=== PATIENT | female | born 1960 | race Caucasian/White ===

== ENCOUNTER 2017-06-28 11:53 | Emergency (ER) | payer BC ==
[2017-06-28] MEDS ORDERED: KETOROLAC 60 MG/2 ML VIAL IM STA (12:14)
--- NOTE | 2017-06-28 12:22 | ED ---
General Adult HPI - General Chief complaint: Back Pain/Injury Stated complaint: blood in urine, back pain Time Seen by Provider: 06/28/17 12:06 Source: patient Mode of arrival: wheelchair Limitations: no limitations - History of Present Illness Initial comments: This 57-year-old white female presents with a complaint of some low back pain. This started yesterday. She states it is into her bilateral lumbar spine. She also has chronic back pain and this apparently is due to a degenerative disc. She denies any recent injuries. She also relates having some hematuria, frequency, and urgency and thinks she may have a urinary tract infection. She further relates having a cough and was diagnosed with bronchitis 2 weeks ago. She initially was prescribed some prednisone and amoxicillin but this does not seem to have helped alleviate her symptoms. She had a fever of 103 2 weeks ago but none recently. No other complaints or modifying factors. She will take an occasional NSAID for her back pain but denies any other medications in this regard. - Related Data Home Medications Medication Instructions Recorded Confirmed Ca/D3/Mag/Zinc/Jamil/Angel/Mgbor 1 tab PO DAILY 01/27/15 06/28/17 [Caltrate 600+D3+Min Chew Tab] Montelukast [Singulair] 10 mg PO HS 01/27/15 06/28/17 Multivitamin/Iron/Folic Acid 1 tab PO DAILY 01/27/15 06/28/17 [Centrum Complete Multivit Tab] Linaclotide [Linzess] 145 mcg PO DAILY 01/30/15 06/28/17 Albuterol Sulfate [Proair Hfa] 2 puff INHALATION RT-Q6H PRN 06/28/17 06/28/17 Beclomethasone Dipropionate [Qvar] 2 puff INHALATION RT-BID 06/28/17 06/28/17 Cranberry Fruit Concentrate [Azo 250 mg PO DAILY PRN 06/28/17 06/28/17 Cranberry] Levothyroxine Sodium [Synthroid] 137 mcg PO DAILY 06/28/17 06/28/17 Omeprazole 20 mg PO DAILY 06/28/17 06/28/17 Previous Rx's Medication Instructions Recorded Ciprofloxacin HCl [Cipro] 500 mg PO Q12HR #20 tablet 06/28/17 traMADol HCl [Ultram] 50 - 100 mg PO Q6H PRN #20 tab 06/28/17 Allergies Allergy/AdvReac Type Severity Reaction Status Date / Time acetaminophen [From Vicodin] Allergy Unknown Verified 06/28/17 12:35 hydrocodone [From Vicodin] Allergy Unknown Verified 06/28/17 12:35 morphine Allergy Nausea & Verified 06/28/17 12:35 Vomiting,rash,swelling Review of Systems ROS Statement: Those systems with pertinent positive or pertinent negative responses have been documented in the HPI. ROS Other: All systems not noted in ROS Statement are negative. Past Medical History Past Medical History: Cancer Additional Past Medical History / Comment(s): thyroid cancer History of Any Multi-Drug Resistant Organisms: None Reported Past Surgical History: Appendectomy, Cholecystectomy, Hysterectomy Additional Past Surgical History / Comment(s): tumor removed from right lung, thyroidectomy Past Psychological History: No Psychological Hx Reported Smoking Status: Former smoker Past Alcohol Use History: None Reported Past Drug Use History: None Reported General Exam - General Exam Comments Initial Comments: GENERAL: The patient is well nourished and well hydrated. VITAL SIGNS: Heart rate, blood pressure, respiratory rate reviewed as recorded in nurse's notes. EYES: Pupils are round and reactive. Extraocular movements are intact. No conjunctival / lid redness or swelling. ENT: No external evidence of injury, swelling, or ecchymosis. Airway is patent. Throat is clear. NECK: Nontender. No swelling or evidence of injury. No subcutaneous emphysema. Trachea is midline. No thyroid mass. HEART: Regular rate and rhythm. Good peripheral pulses. LUNGS/CHEST: Breath sounds clear and equal bilaterally. No rales, rhonchi, or wheezes. No ecchymosis, subcutaneous emphysema, or tenderness. ABDOMEN: Abdomen soft without tenderness. No palpable masses or organomegaly. No peritoneal signs. No abdominal wall swelling or ecchymosis. EXTREMITIES: No extremity tenderness. Normal muscle tone and function. There is tenderness present to the bilateral para lumbar musculature and also in the midline. NEUROLOGIC: Sensation is grossly intact. Cranial nerve exam reveals face is symmetrical, tongue is midline, speech is clear. SKIN: No abrasions or ecchymosis is noted. No induration or masses noted. PSYCHIATRIC: Alert and oriented. Appropriate behavior and judgment. Limitations: no limitations Course Vital Signs 06/28/17 06/28/17 11:56 13:15 Temperature 98.1 F Pulse Rate 86 74 Respiratory 20 18 Rate Blood Pressure 135/73 115/72 O2 Sat by Pulse 98 97 Oximetry Medical Decision Making - Medical Decision Making The patient was seen and examined. All diagnostics were reviewed. He received Toradol 60 mg IM for pain control. She does relate some mild relief but is still having pain and is ordered some Ultram. She apparently has had Ultram before without any problems. Her urine does show evidence of urinary tract infection. The white blood cell count is slightly elevated and on the labs. The chest x-ray does show some chronic changes in the right base which patient was aware of. This may be atelectasis versus an infiltrate per radiology. They note that it is chronic in nature. Overall, it is felt that she potentially could have a degree of pyelonephritis. The possibility of her back pain being related to chronic back pain exacerbation is certainly possible as well. Nevertheless, is felt as though she is stable for discharge and leaves in no severe distress. - Lab Data Result diagrams: 06/28/17 12:25 06/28/17 12:25 Lab Results 06/28/17 06/28/17 06/28/17 Range/Units 12:20 12:25 12:25 WBC 12.4 H (3.8-10.6) k/uL RBC 5.03 (3.80-5.40) m/uL Hgb 15.5 (11.4-16.0) gm/dL Hct 44.3 (34.0-46.0) % MCV 87.9 (80.0-100.0) fL MCH 30.7 (25.0-35.0) pg MCHC 34.9 (31.0-37.0) g/dL RDW 12.9 (11.5-15.5) % Plt Count 323 (150-450) k/uL Neutrophils % 76 % Lymphocytes % 16 % Monocytes % 5 % Eosinophils % 1 % Basophils % 0 % Neutrophils # 9.5 H (1.3-7.7) k/uL Lymphocytes # 2.0 (1.0-4.8) k/uL Monocytes # 0.6 (0-1.0) k/uL Eosinophils # 0.2 (0-0.7) k/uL Basophils # 0.1 (0-0.2) k/uL Sodium 141 (137-145) mmol/L Potassium 4.3 (3.5-5.1) mmol/L Chloride 107 (98-107) mmol/L Carbon Dioxide 24 (22-30) mmol/L Anion Gap 10 mmol/L BUN 13 (7-17) mg/dL Creatinine 0.60 (0.52-1.04) mg/dL Est GFR (MDRD) Af Amer >60 (>60 ml/min/1.73 sqM) Est GFR (MDRD) Non-Af >60 (>60 ml/min/1.73 sqM) Glucose 78 (74-99) mg/dL Calcium 9.1 (8.4-10.2) mg/dL Urine Color Yellow Urine Appearance Clear (Clear) Urine pH 5.5 (5.0-8.0) Ur Specific [place] 1.008 (1.001-1.035) Urine Protein Negative (Negative) Urine Glucose (UA) Negative (Negative) Urine Ketones Negative (Negative) Urine Blood Negative (Negative) Urine Nitrite Negative (Negative) Urine Bilirubin Negative (Negative) Urine Urobilinogen <2.0 (<2.0) mg/dL Ur Leukocyte Esterase Trace H (Negative) Urine RBC 1 (0-5) /hpf Urine WBC 14 H (0-5) /hpf Disposition Clinical Impression: Lumbar back pain, Pyelonephritis, UTI (urinary tract infection), Leukocytosis Disposition: HOME SELF-CARE Condition: Good Instructions: Chronic Back Pain (ED), Kidney Infection (ED), Urinary Tract Infection in Women (ED) Prescriptions: Ciprofloxacin HCl [Cipro] 500 mg PO Q12HR #20 tablet traMADol HCl [Ultram] 50 - 100 mg PO Q6H PRN #20 tab PRN Reason: Pain Referrals: Rik Kiser MD [Primary Care Provider] - 1-2 days Time of Disposition: 13:27
[2017-06-28 12:38] LABS: Basophils # (A) 0.1 k/uL (0-0.2); Basophils % (A) 0 %; CH 30.1; CHCM 34.4; Eosinophils # (A) 0.2 k/uL (0-0.7); Eosinophils % (A) 1 %; HCT 44.3 % (34.0-46.0); HDW 2.52; HGB 15.5 gm/dL (11.4-16.0); Luc # (Auto) 0.13; Luc % (Auto) 1; Lymphocytes % (A) 16 %; MCH 30.7 pg (25.0-35.0); MCHC 34.9 g/dL (31.0-37.0); MCV 87.9 fL (80.0-100.0); Mean Platelet Volume 6.6; Monocytes # (A) 0.6 k/uL (0-1.0); Monocytes % (A) 5 %; Neutrophils # (A) 9.5 k/uL (1.3-7.7); Neutrophils % (A) 76 %; RBC 5.03 m/uL (3.80-5.40); RDW 12.9 % (11.5-15.5); WBC 12.4 k/uL (3.8-10.6); WBC (Perox) 12.09
[2017-06-28 12:40] LABS: Appearance,Urine Clear (Clear); Bilirubin,Urine Negative (Negative); Glucose,Urine (UA) Negative (Negative); Ketones,Urine Negative (Negative); Leukocyte Esterase,Urine Trace (Negative); Nitrite,Urine Negative (Negative); PH, Urine 5.5 (5.0-8.0); Particle Count 786; Protein,Urine Negative (Negative); RBC,Urine 1 /hpf (0-5); Specific Gravity,Urine 1.008 (1.001-1.035); UA Billing (MACRO vs. MICRO) MICRO; Urobilinogen,Urine <2.0 mg/dL (<2.0); WBC,Urine 14 /hpf (0-5)
[2017-06-28 12:48] LABS: Anion Gap 10 mmol/L; Blood Urea Nitrogen 13 mg/dL (7-17); Calcium 9.1 mg/dL (8.4-10.2); Carbon Dioxide 24 mmol/L (22-30); Chloride 107 mmol/L (98-107); Glucose 78 mg/dL (74-99); Non-African American GFR(MDRD) >60 (>60 ml/min/1.73 sqM); Potassium 4.3 mmol/L (3.5-5.1); Sodium 141 mmol/L (137-145)
--- NOTE | 2017-06-28 12:51 | XR ---
EXAMINATION TYPE: XR chest 2V DATE OF EXAM: 06/28/2017 COMPARISON: 03/28/2012 TECHNIQUE: PA and lateral views submitted. HISTORY: Cough and congestion FINDINGS: Subsegmental consolidation the right lung base was also noted on the previous. Heart size stable. Ath erosclerotic change aorta. No pneumothorax. No interstitial edema. IMPRESSION: 1. Stable chronic appearing right lower lobe infiltrate or atelectasis.
[2017-06-28 13:21] VITALS: RESP 18
[2017-06-28] MEDS ORDERED: traMADol 50 MG TAB PO STA (13:24)
[2017-06-28 13:51] VITALS: BP 116/72; PULSE 67; TEMP 97.6
== END 2017-06-28 13:51 | disposition home or self-care (01) ==
LOC: EC 11:53
DX: N12 Tubulo-interstitial nephritis, not specified as acute or chronic (principal); N39.0 Urinary tract infection, site not specified; D72.829 Elevated white blood cell count, unspecified; M47.816 Spondylosis without myelopathy or radiculopathy, lumbar region; R91.8 Other nonspecific abnormal finding of lung field; Z87.891 Personal history of nicotine dependence; E89.0 Postprocedural hypothyroidism; Z79.51 Long term (current) use of inhaled steroids; Z79.899 Other long term (current) drug therapy; Z88.5 Allergy status to narcotic agent; Z85.850 Personal history of malignant neoplasm of thyroid
CPT/HCPCS: 36415; 80048; 85025; 81001; 71020; 99283; 96372; J1885

== ENCOUNTER → 2019-02-15 | Outpatient (CLI) | payer BC ==
--- NOTE | 2019-02-15 18:47 | MR ---
EXAMINATION TYPE: MR angio head wo con DATE OF EXAM: 02/15/2019 COMPARISON: Correlation MRI brain 03/28/2012 HISTORY: 58-year-old female Cerebral aneurysm, nonruptured, AMATO TECHNIQUE: High-resolution 3-D [id number] imaging of the [place] without contrast. Rotat ional 3-D reconstructions generated on a dedicated independent workstation. FINDINGS: Both anterior and posterior circulations are patent. Vessels show normal caliber and contour. No sign ificant stenosis, arterial occlusion, or aneurysmal change. IMPRESSION: Unremarkable MRA [place].
== END | disposition home or self-care (01) ==
LOC: RADMRIMAIN 10:58
PROVIDERS: ATTEND Psychiatry & Neurology Neurology
DX: I67.1 Cerebral aneurysm, nonruptured (principal)
CPT/HCPCS: 70544

== ENCOUNTER → 2020-03-12 | Outpatient (CLI) | payer BC ==
--- NOTE | 2020-03-12 12:03 | FL ---
EXAMINATION TYPE: FL barium swallow DATE OF EXAM: 03/12/2020 CLINICAL HISTORY: Dysphagia and reflux for years. Surgical history of thyroidectomy. TECHNIQUE: A double contrast esophagram is performed utilizing air and barium. A total of 1 minute and 28 seconds of fluoroscopic time was utilized during procedure. 51 fluoroscopic images were saved during the examination. COMPARISON: None FINDINGS: There is a very mild smooth narrowing of the distal gastroesophageal junction resulting in intermittent delayed propulsion through the distal esophagus into the stomach. A very small hiatal he rnia seen on supine imaging. Mild degree gastroesophageal reflux is noted in the supine position only . The patient swallows contrast without difficulty. IMPRESSION: 1. Very mild smooth stricture of the distal esophagus at the gastroesophageal junction resulting in d elayed passage of contrast through the distal esophagus intermittently. 2. Mild degree gastroesophageal reflux with a very small hiatal hernia.
== END | disposition home or self-care (01) ==
LOC: RADUSWWP 11:05
PROVIDERS: ATTEND Surgery Plastic and Reconstructive Surgery
DX: K22.2 Esophageal obstruction (principal); K22.8 Other specified diseases of esophagus; K21.9 Gastro-esophageal reflux disease without esophagitis; K44.9 Diaphragmatic hernia without obstruction or gangrene
CPT/HCPCS: 74220

== ENCOUNTER → 2020-03-25 | Outpatient (CLI) | payer BC | END | disposition home or self-care (01) | LOC: LABWHC1 11:47 | PROVIDERS: ATTEND Surgery Plastic and Reconstructive Surgery | DX: Z11.59 Encounter for screening for other viral diseases (principal) ==

== ENCOUNTER → 2020-03-27 | Day surgery (SDC) | payer BC ==
[2020-03-25 16:10] VITALS: BMI 25.6
--- NOTE | 2020-03-26 19:48 | P.GSHP ---
History of Present Illness H&P Date: 03/27/20 CHIEF COMPLAINT: GERD HISTORY OF PRESENT ILLNESS: The patient is a 60-year-old female who presents reports gastroesophageal reflux disease. Upper endoscopy was offered for further evaluation and management. PAST MEDICAL HISTORY: Please see list. PAST SURGICAL HISTORY: Please see list. MEDICATIONS: Please see list. ALLERGIES: Please see list. SOCIAL HISTORY: No illicit drug use FAMILY HISTORY: No reports of Crohn disease or ulcerative colitis. REVIEW OF ORGAN SYSTEMS: CONSTITUTIONAL: No reports of fevers or chills. GI: Denies any blood in stools or constipation. PHYSICAL EXAM: VITAL SIGNS: Stable GENERAL: Well-developed and pleasant in no acute distress. HEENT: No scleral icterus. Extraocular movements grossly intact. Moist buccal mucosa. NECK: Supple without lymphadenopathy. CHEST: Unlabored respirations. Equal bilateral excursions. CARDIOVASCULAR: Regular rate and rhythm. Distal 2+ pulses. ABDOMEN: Soft, nondistended. MUSCULOSKELETAL: No clubbing, cyanosis, or edema. ASSESSMENT: 1. Gastroesophageal reflux disease PLAN: 1. Recommend proceeding with an upper endoscopy Past Medical History Past Medical History: Cancer, CVA/TIA, Fibromyalgia, GERD/Reflux, Hypertension, Skin Disorder, Thyroid Disorder Additional Past Medical History / Comment(s): thyroid cancer, hx migraines, hx seizures-last seizure 2017, TIA 2017, "minimal brain aneurysm", hx heart murmer, hx irregular heartbeat, ulcers, psoriasis on legs, "told high risk for blood clots", dx with lupus yrs ago, History of Any Multi-Drug Resistant Organisms: None Reported Past Surgical History: Appendectomy, Cholecystectomy, Hysterectomy Additional Past Surgical History / Comment(s): tumor removed from right lung, thyroidectomy Past Anesthesia/Blood Transfusion Reactions: Motion Sickness Smoking Status: Former smoker - Past Family History Mother Family Medical History: No Reported History Medications and Allergies Home Medications Medication Instructions Recorded Confirmed Type Ca/D3/Mag/Zinc/Jamil/Angel/Mgbor 1 tab PO DAILY 01/27/15 03/25/20 History [Caltrate 600+D3+Min Chew Tab] Montelukast [Singulair] 10 mg PO HS 01/27/15 03/25/20 History Multivitamin/Iron/Folic Acid 1 tab PO DAILY 01/27/15 03/25/20 History [Centrum Complete Multivit Tab] Albuterol Sulfate [Proair Hfa] 2 puff INHALATION RT-Q6H PRN 06/28/17 03/25/20 History Beclomethasone Dipropionate [Qvar] 2 puff INHALATION RT-BID 06/28/17 03/25/20 History Levothyroxine Sodium [Synthroid] 150 mcg PO DAILY 03/25/20 03/25/20 History Linaclotide [Linzess] 145 mcg PO HS PRN 03/25/20 03/25/20 History Allergies Allergy/AdvReac Type Severity Reaction Status Date / Time acetaminophen [From Vicodin] Allergy Unknown Verified 03/25/20 15:55 hydrocodone [From Vicodin] Allergy Unknown Verified 03/25/20 16:22 morphine Allergy Nausea & Verified 03/25/20 15:55 Vomiting,rash,swelling
[~2020-03-27] MED LIST: LACTATED RINGERS 1,000 ML IV SCH; LIDOCAINE 1% INJ 10MG/ML (20 ML MDV) ONE; PROPOFOL 10 MG/ML 20 ML VIAL IV ONE
[2020-03-27 10:11] VITALS: TEMP 97.1
--- NOTE | 2020-03-27 10:58 | P.HPADDEND ---
H&P Addendum H&P Addendum Date: 03/27/20 Patient presents with history of dysphagia. Esophagram confirms small sliding hiatal hernia stricture along the distal esophagus. Will proceed with upper endoscopy.
--- NOTE | 2020-03-27 11:02 | P.PCN ---
Date of Procedure: 03/27/20 Description of Procedure: PREOPERATIVE DIAGNOSIS: Dysphagia. Gastroesophageal reflux disease Esophageal stricture POSTOPERATIVE DIAGNOSIS: Dysphagia. Gastroesophageal reflux disease Esophageal stricture Gastritis OPERATION: Esophagogastroduodenoscopy with rigid dilator over the guidewire 51 Fr. Esophagogastroduodenoscopy with cold forceps biopsies along antrum SURGEON: Darlene Vick MD ANESTHESIA: MAC. INDICATIONS: The patient is a 60-year-old female who presents with a history of dysphagia. B enefits and risks of the procedure were described. Informed consent was obtained. DESCRIPTION: The patient was brought into the endoscopy suite and laid in the left lateral decubitus position. After a timeout was confirmed, the procedure was initiated. An Olympus gastroscope was passed and the stomach was entered. Mild gastritis was identified. The scope was advanced to the duodenum which was unremarkable. Retroflexion the scope confirmed a Hill grade 1 lower esophageal valve. Additionally, stricture identified along the upper esophageal sphincter. Next using an Swedish rigid dilator, a guidewire was placed through the Olympus gastroscope. Next the scope was withdrawn. A 51-Frisian rigid Swedish dilator was passed carefully along the posterior oropharynx to 50 cm and left in place for 2-3 minutes stretch. The dilator was withdrawn including the guidewire. The scope was reentered along the posterior oropharynx with no findings of full- thickness tear of the upper esophageal sphincter. Next, inflammation of the antrum was identified with cold forceps biopsies obtained. No full-thickness injury was encountered. The GI tract was desufflated. The patient tolerated the procedure well. FINDINGS: Squamocolumnar junction unremarkable at 35 cm. Distal esophageal stricture without ulceration Upper esophageal sphincter stricture Swedish rigid dilator 51-Frisian completed. No large hiatus hernia Mild gastritis. Hill grade 1 lower esophageal valve. LA grade A esophagitis. RECOMMENDATIONS: Upper endoscopy as needed Recommend esophageal manometry to elucidate esophageal spasm Plan - Discharge Summary New Discharge Prescriptions: Continue Montelukast [Singulair] 10 mg PO HS Multivitamin/Iron/Folic Acid [Centrum Complete Multivit Tab] 1 tab PO DAILY Ca/D3/Mag/Zinc/Jamil/Angel/Mgbor [Caltrate 600-D3-Min Chew Tab] 1 tab PO DAILY Beclomethasone Dipropionate [Qvar 80 mcg] 2 puff INHALATION RT-BID Albuterol Sulfate [Proair Hfa] 2 puff INHALATION RT-Q6H PRN PRN Reason: Shortness Of Breath Levothyroxine Sodium [Synthroid] 150 mcg PO DAILY Linaclotide [Linzess] 145 mcg PO HS PRN PRN Reason: Constipation Discharge Medication List Ca/D3/Mag/Zinc/Jamil/Angel/Mgbor [Caltrate 600-D3-Min Chew Tab] 1 tab PO DAILY 01/27/15 [History] Montelukast [Singulair] 10 mg PO HS 01/27/15 [History] Multivitamin/Iron/Folic Acid [Centrum Complete Multivit Tab] 1 tab PO DAILY 01/27/15 [History] Albuterol Sulfate [Proair Hfa] 2 puff INHALATION RT-Q6H PRN 06/28/17 [History] Beclomethasone Dipropionate [Qvar 80 mcg] 2 puff INHALATION RT-BID 06/28/17 [History] Levothyroxine Sodium [Synthroid] 150 mcg PO DAILY 03/25/20 [History] Linaclotide [Linzess] 145 mcg PO HS PRN 03/25/20 [History] Follow up Appointment(s)/Referral(s): Darlene Vick MD [STAFF PHYSICIAN] - 04/15/20 Patient Instructions/Handouts: Esophageal Dilation (DC), Esophageal Spasm (GEN) Activity/Diet/Wound Care/Special Instructions: Recommend warm beverages prior to meals. Avoid extremely cold food. Diet as tolerated today Discharge Disposition: HOME SELF-CARE
[2020-03-27 11:10] VITALS: RESP 17
[2020-03-27 11:15] VITALS: BP 140/70; PULSE 72
== END | disposition home or self-care (01) ==
LOC: ORWHC2ENDO 09:28
PROVIDERS: ATTEND Surgery Plastic and Reconstructive Surgery
DX: K29.50 Unspecified chronic gastritis without bleeding (principal); K31.89 Other diseases of stomach and duodenum; K22.2 Esophageal obstruction; K21.0 Gastro-esophageal reflux disease with esophagitis; M79.7 Fibromyalgia; I10 Essential (primary) hypertension; M32.9 Systemic lupus erythematosus, unspecified; L40.9 Psoriasis, unspecified; I67.1 Cerebral aneurysm, nonruptured; E89.0 Postprocedural hypothyroidism; F41.9 Anxiety disorder, unspecified; F32.9 Major depressive disorder, single episode, unspecified; Z88.5 Allergy status to narcotic agent; Z85.850 Personal history of malignant neoplasm of thyroid; Z86.73 Personal history of transient ischemic attack (TIA), and cerebral infarction without residual deficits; Z86.69 Personal history of other diseases of the nervous system and sense organs; Z86.79 Personal history of other diseases of the circulatory system; Z87.898 Personal history of other specified conditions; Z90.49 Acquired absence of other specified parts of digestive tract; Z90.710 Acquired absence of both cervix and uterus; Z98.890 Other specified postprocedural states; Z87.891 Personal history of nicotine dependence; Z79.899 Other long term (current) drug therapy; Z79.51 Long term (current) use of inhaled steroids; Z79.890 Hormone replacement therapy
CPT/HCPCS: 43248; 43239; 88305; J2001; J2704; 43249

== ENCOUNTER → 2020-04-30 | Outpatient (CLI) | payer BC ==
[2020-04-30 15:36] LABS: ALT 24 U/L (4-34); AST 26 U/L (14-36); African American GFR (CKD) >90 (>60 ml/min/1.73 sqM); Albumin 4.3 g/dL (3.5-5.0); Alkaline Phosphatase 79 U/L (38-126); Anion Gap 7 mmol/L; Blood Urea Nitrogen 16 mg/dL (7-17); Calcium 9.2 mg/dL (8.4-10.2); Carbon Dioxide 27 mmol/L (22-30); Chloride 105 mmol/L (98-107); Glucose 95 mg/dL (74-99); Non-African American GFR(CKD) >90 (>60 ml/min/1.73 sqM); Potassium 4.2 mmol/L (3.5-5.1); Sodium 139 mmol/L (137-145); Total Bilirubin 0.3 mg/dL (0.2-1.3); Total Protein 7.3 g/dL (6.3-8.2)
[2020-04-30 15:38] LABS: HCT 44.3 % (34.0-46.0); HGB 14.4 gm/dL (11.4-16.0); MCH 29.5 pg (25.0-35.0); MCHC 32.6 g/dL (31.0-37.0); MCV 90.5 fL (80.0-100.0); Mean Platelet Volume 8.3; Platelet Count 300 k/uL (150-450); RDW 12.8 % (11.5-15.5); WBC 6.2 k/uL (3.8-10.6)
== END | disposition home or self-care (01) ==
LOC: LABWHC1 13:18
PROVIDERS: ATTEND Surgery Plastic and Reconstructive Surgery
DX: Z01.810 Encounter for preprocedural cardiovascular examination (principal)
CPT/HCPCS: 36415; 80053; 85027; 93005

== ENCOUNTER 2020-07-11 13:49 | Observation (INO) | payer BC ==
--- NOTE | 2020-07-10 21:03 | P.GSHP ---
History of Present Illness H&P Date: 07/11/20 CHIEF COMPLAINT: Paraesophageal hiatal hernia with gastroesophageal reflux disease. HISTORY OF PRESENT ILLNESS: The patient is a 60-year-old female who presents with paraesophageal hiatal hernia. She has completed an esophageal manometry including upper endoscopy workup. Now she presents for surgical intervention. PAST MEDICAL HISTORY: Please see list. PAST SURGICAL HISTORY: Please see list. MEDICATIONS: Please see list. ALLERGIES: Please see list. SOCIAL HISTORY: No illicit drug use FAMILY HISTORY: No reports of Crohn disease or ulcerative colitis. REVIEW OF ORGAN SYSTEMS: CONSTITUTIONAL: No reports of fevers or chills. GI: Denies any blood in stools or constipation. PHYSICAL EXAM: VITAL SIGNS: Stable GENERAL: Well-developed pleasant and in no acute distress. HEENT: No scleral icterus. Extraocular movements grossly intact. Moist buccal mucosa. NECK: Supple without lymphadenopathy. CHEST: Unlabored respirations. Equal bilateral excursions. CARDIOVASCULAR: Regular rate and rhythm. Distal 2+ pulses. ABDOMEN: Soft, nondistended. No peritoneal signs. MUSCULOSKELETAL: No clubbing, cyanosis, or edema. SKIN: Well-perfused. Good skin turgor. MANOMETRY: Shows no evidence of achalasia or scleroderma. ASSESSMENT: 1. Diaphragmatic paraesophageal hiatal hernia with severe gastroesophageal reflux disease. PLAN: 1. Recommend proceeding with a robotic paraesophageal hiatal hernia with possible mesh. 2. Benefits and risks of surgical intervention was discussed including possibility of open technique. 3. Inpatient hospitalization recommended of 2 nights 4. DVT prophylaxis. 5. Antibiotic prophylaxis. 6. She has also completed a very low caloric high-protein diet to address underlying hepatomegaly. Past Medical History Past Medical History: Asthma, Cancer, CVA/TIA, Osteoarthritis (OA), Seizure Disorder, Thyroid Disorder Additional Past Medical History / Comment(s): thyroid cancer, TIA, MIGRAINE HEADACHE , SEIZURE- LAST 2006, PATIENT STATES SHE HAS A BRAIN ANEURYSM DOCTORS A RE WATCHING IT EVERY 6 MONTHS TO A YEAR. History of Any Multi-Drug Resistant Organisms: None Reported Past Surgical History: Appendectomy, Cholecystectomy, Hysterectomy Additional Past Surgical History / Comment(s): tumor removed from right lung, thyroidectomy, BSO Past Anesthesia/Blood Transfusion Reactions: Motion Sickness Smoking Status: Former smoker - Past Family History Mother Family Medical History: No Reported History Medications and Allergies Home Medications Medication Instructions Recorded Confirmed Type Ca/D3/Mag/Zinc/Jamil/Angel/Mgbor 1 tab PO DAILY 01/27/15 07/10/20 History [Caltrate 600-D3-Min Chew Tab] Multivitamin/Iron/Folic Acid 1 tab PO DAILY 01/27/15 07/10/20 History [Centrum Complete Multivit Tab] Albuterol Sulfate [Proair Hfa] 2 puff INHALATION RT-Q6H PRN 06/28/17 07/10/20 History Beclomethasone Dipropionate [Qvar 2 puff INHALATION RT-BID PRN 06/28/17 07/10/20 History 80 mcg] Levothyroxine Sodium [Synthroid] 150 mcg PO DAILY 03/25/20 07/10/20 History Levothyroxine Sodium [Tirosint-Deepika] 25 mcg PO DAILY 07/10/20 07/10/20 History Allergies Allergy/AdvReac Type Severity Reaction Status Date / Time acetaminophen [From Tylenol] Allergy Nausea Verified 07/10/20 11:09 hydrocodone [From Vicodin] Allergy Nausea & Verified 07/10/20 11:09 Vomiting, CONSTIPATION morphine Allergy Nausea & Verified 07/10/20 11:09 Vomiting,rash,swelling
[~2020-07-11 13:49] MED LIST changes: +ACETAMINOPHEN TAB 500 MG TAB PO STA; +CHLORHEXIDINE GLUCONATE 15 ML CUP MUCOUS MEM ONE; +DEXAMETHASONE SOD PHOSPHATE 10 MG/ML 1 ML VIAL IV ONE; +DEXAMETHASONE SOD PHOSPHATE 4 MG/ML 1 ML VIAL IV STA; +GABAPENTIN 300 MG CAP PO ONE; +HEPARIN SODIUM,PORCINE 5,000 UNIT/ML 1 ML VIAL SQ ONE; -LIDOCAINE 1% INJ 10MG/ML (20 ML MDV) ONE; +MIDAZOLAM 2 MG/2 ML VIAL IV PRN; +ONDANSETRON 4 MG/2 ML VIAL IVP ONE; +PANTOPRAZOLE 40 MG/10 ML VIAL IV ONE; -PROPOFOL 10 MG/ML 20 ML VIAL IV ONE; +SCOPOLAMINE 1.5MG/72HR PATCH TRANSDERM SCH; +fentaNYL (PF) 50 MCG/ML 2 ML AMP IV PRN
[2020-07-11] MEDS ORDERED: LIDOCAINE 1% (10MG/ML) FOR IV START INTRADERMA ONE (14:50)
[2020-07-11] MEDS ORDERED: ROCURONIUM BROMIDE 10 MG/ML 5 ML VIAL IV ONE (16:32)
[2020-07-11] MEDS ORDERED: fentaNYL (PF) 50 MCG/ML 2 ML AMP ONE (16:32)
[2020-07-11] MEDS ORDERED: NEOSTIGMINE 1 MG/ML 10 ML VIAL ONE (16:32)
[2020-07-11] MEDS ORDERED: LIDOCAINE 1% INJ 10MG/ML (20 ML MDV) ONE (16:32)
[2020-07-11] MEDS ORDERED: MIDAZOLAM 2 MG/2 ML VIAL ONE (16:32)
[2020-07-11] MEDS ORDERED: KETOROLAC 15 MG/ML 1 ML VIAL ONE (16:32)
[2020-07-11] MEDS ORDERED: KETAMINE 10 MG/ML 20 ML VIAL ONE (16:32)
[2020-07-11] MEDS ORDERED: SUCCINYLCHOLINE CHLORIDE 100 MG/5 ML SYR IV ONE (16:32)
[2020-07-11] MEDS ORDERED: GLYCOPYRROLATE 0.2 MG/ML 2 ML VIAL ONE (16:32)
[2020-07-11] MEDS ORDERED: PROPOFOL 10 MG/ML 20 ML VIAL IV ONE (16:32)
[2020-07-11] MEDS ORDERED: LIDOCAINE 1%-EPI 1:100,000 20 ML VIAL SQ ONE ×2 (16:53→16:59)
[2020-07-11] MEDS: HYDROmorphone 1 MG/ML 1 ML SYRINGE IVP ONE ×2 (18:28→18:40)
[2020-07-11] MEDS ORDERED: ALBUTEROL NEBULIZED 2.5 MG/3 ML INHALATION PRN (18:29)
[2020-07-11] MEDS ORDERED: FLUTICASONE 110 MCG INHALER INHALATION PRN (18:29)
[2020-07-11] MEDS ORDERED: NALOXONE 0.4 MG/ML 1 ML VIAL IV PRN (18:39)
[2020-07-11] MEDS ORDERED: diphenhydrAMINE 50 MG/ML 1 ML VIAL IVP PRN (18:39)
--- NOTE | 2020-07-11 18:39 | P.OP ---
Date of Procedure: 07/11/20 Description of Procedure: SURGEON: JEY TSE MD PREOPERATIVE DIAGNOSES: 1. Diaphragmatic hiatal hernia 2. Gastroesophageal reflux disease 3. Upper esophageal stricture 4. History of lower esophageal stricture 5. Chronic obstructive pulmonary disease 6. History of thyroid cancer 7. Migraines 8. Brain aneurysm 9. History of seizure disorder 10. Anxiety 11. Depressive disorder POSTOPERATIVE DIAGNOSES: 1. Midline paraesophageal diaphragmatic hiatal hernia, 2 cm 2. Gastroesophageal reflux disease 3. Upper esophageal stricture 4. History of lower esophageal stricture 5. Chronic obstructive pulmonary disease 6. History of thyroid cancer 7. Migraines 8. Brain aneurysm 9. History of seizure disorder 10. Anxiety 11. Depressive disorder OPERATION: 1. Robotic-assisted da Dwayne Xi laparoscopic reduction and repair of incarcerated paraesophageal hiatal hernia 3 x 2 cm without mesh 2. Intraoperative esophagogastroduodenoscopy 3. Placement of 56-Finnish bougie for esophageal strictures ANESTHESIA: General with local anesthetic. ESTIMATED BLOOD LOSS: 5 mL SPECIMENS REMOVED: None COMPLICATIONS: None. FINDINGS: 1. Hiatal defect 3 x 2 cm 2. Hill grade 1 lower esophageal valve after completion of procedure INDICATIONS: The patient is a 60-year-old female who presents with epigastric abdominal pain, gastroesophageal reflux disease poorly controlled despite medications, history of upper including lower esophageal sphincters from reflux and a symptomatic diaphragmatic hiatal hernia. She completed an esophageal manometry confirming hiatal hernia. Given the severity of her symptoms, particularly of her symptomatic diaphragmatic hiatal hernia, she had elected for surgical intervention. Benefits and risks including bleeding, infection, recurrence, dysphagia, injury to the lung, need for further surgery was described at length. Informed consent was obtained. DESCRIPTION: The patient was brought into the operating room and placed in supine position. Preoperatively she had received subcutaneous DVT prophylaxis. After general induction, the abdomen was prepped and draped in standard sterile fashion. The patient had previously voided prior to coming to the operating room. Ioban draping was placed along the abdomen. A timeout protocol was confirmed with the surgical team, for which the patient's name, procedure to be performed including DVT prophylaxis with bilateral SCDs, and preoperative antibiotics were also confirmed. A robotic da Dwayne Xi system was prepped and primed. At 12 cm from the xiphoid to just below the umbilicus, proposed port sites were marked with indelible marker along the left axillary line, left mid-clavicular line with each ports were marked 10 cm from each other. A 5 mm 0 degrees laparoscopic trocar entry was performed along the left upper quadrant. The abdomen was insufflated to 15 mmHg pressure she tolerated well. Diagnostic laparoscopy demonstrated no injury to bowel, viscera, or mesentery. The liver surface was unremarkable. No injury had occurred to the small bowel or viscera. Next, one 8 mm robotic port was placed along the right upper abdomen. An 8-mm port was were placed along the left mid abdomen. The camera 12-mm port extended length was maintained along the epigastrium via the hernia defect. Another 8 mm port was placed along the left upper abdominal wall after exchanging the 5 mm port. Please note that the ports were placed at least 20 cm away from the target anatomy. Care was taken to check that each robotic arm were safely away from collision with the bed or the patient. At the epigastrium, a medium sized Violeta liver retractor was placed under direct visualization with the [employer] Attendant placed under the right shoulder of the patient. The patient was repositioned in reverse Trendelenburg position and 21 after lowering the bed. The robot was docked above the head of the patient. Using a grasper for arm 3, a grasper for arm 2, including hook cautery for arm 1, the robotic system was docked and primed as described. Instruments were inter changed by the team assistant . I had sat at the console. The gastrohepatic ligament was cleaved using a vessel sealer. Next, the phrenoesophageal ligament was mobilized and the distal esophagus was mobilized circumferentially without injury to the bilateral vagi nerves. The left and right crura was identified. A midline hiatal hernia was found. Mobilization of the distal esophagus into the media stinum was performed without injury to the vagus nerves. The measured defect was consistent with at least 3 cm axial length and 2 cm width. After extensive dissection, the distal esophagus of at least 2 cm was brought into the abdominal cavity. Once the hiatus and crura was dissected, 2-0 VLOC nonabsorbable suture was placed initially to reapproximate the diaphragmatic hiatus posteriorly. I went to the head of the bed to perform intraoperative esophagogastroduodenoscopy. An Olympus gastroscope was passed through posterior oropharynx, where the GE junction was found distal to the diaphragm atic hiatus. The intra-abdominal esophageal length obtained during the case was over 2 cm. The stomach was entered including duodenum. Retroflexion of the scope confirmed a Hill grade 1 lower esophageal valve. The squamocolumnar junction was at 35 cm. Diaphragmatic hiatus was at 32 cm. The stomach had been desufflated. No evidence of leaks were found either of the mucosal defects of the esophagus or stomach. To address history of upper including lower esophageal strictures, 56-Finnish bougie was placed for 1 minute and withdrawn. This concluded the endoscopic portion of the case. The robot was undocked from the patient. I re-scrubbed into the case. All instruments and pneumoperitoneum were evacuated from the abdominal cavity. Incisions were reapproximated using 4-0 Monocryl in an interrupted subcuticular fashion. Liquid glue was applied to the skin. Local anesthetic was infiltrated in all wounds for postop analgesia. Multiple intra-abdominal films were obtained. At the end of the procedure, needle, sponge, and instrument count was verified correct by the satellite dish technician. The patient had tolerated the procedure well and was taken to the postanesthesia unit in stable condition. Intraoperative films were reviewed with the patient's family who was pleased with the level of care.
[2020-07-11] MEDS ORDERED: LACTATED RINGERS 1,000 ML IV ONE (18:42)
[2020-07-11 19:22] LABS: Basophils # (A) 0.1 k/uL (0-0.2); Basophils % (A) 1 %; Eosinophils # (A) 0.1 k/uL (0-0.7); Eosinophils % (A) 2 %; HCT 46.9 % (34.0-46.0); HGB 15.6 gm/dL (11.4-16.0); Lymphocytes # (A) 1.8 k/uL (1.0-4.8); Lymphocytes % (A) 29 %; MCH 29.4 pg (25.0-35.0); MCHC 33.2 g/dL (31.0-37.0); MCV 88.5 fL (80.0-100.0); Mean Platelet Volume 8.1; Monocytes # (A) 0.4 k/uL (0-1.0); Monocytes % (A) 6 %; Neutrophils # (A) 3.9 k/uL (1.3-7.7); Neutrophils % (A) 61 %; Platelet Count 294 k/uL (150-450); RDW 12.2 % (11.5-15.5); WBC 6.3 k/uL (3.8-10.6)
[2020-07-11] MEDS: D5-0.45% NACL WITH KCL 20MEQ/L 1,000 ML IV SCH (20:43)
[2020-07-11] MEDS: ALBUTEROL NEBULIZED 2.5 MG/3 ML INHALATION SCH (21:36)
[2020-07-11 22:04] VITALS: RESP 16
[2020-07-11] MEDS: ACETAMINOPHEN IV (For NPO) 650 MG in EMPTY BAG 1 BAG IVPB SCH (22:08)
[2020-07-11] MEDS: HYOSCYAMINE ORAL DROPS 1.875 MG/15 ML BOTTLE PO SCH (23:53)
[2020-07-11] MEDS: METOCLOPRAMIDE 5 MG/ML 2 ML VIAL IVP SCH (23:56)
[2020-07-11] MEDS: SIMETHICONE 40 MG/0.6 ML DROPS 2,000 MG/30 ML BOTTLE PO SCH (23:57)
[2020-07-12] MEDS: KETOROLAC 15 MG/ML 1 ML VIAL IVP SCH ×3 (00:14→13:00)
[2020-07-12] MEDS: ACETAMINOPHEN IV (For NPO) 650 MG in EMPTY BAG 1 BAG IVPB SCH ×2 (03:19→09:41)
[2020-07-12] MEDS: D5-0.45% NACL WITH KCL 20MEQ/L 1,000 ML IV SCH ×2 (03:20→08:36)
[2020-07-12] MEDS: SIMETHICONE 40 MG/0.6 ML DROPS 2,000 MG/30 ML BOTTLE PO SCH ×2 (06:09→13:01)
[2020-07-12] MEDS: HYOSCYAMINE ORAL DROPS 1.875 MG/15 ML BOTTLE PO SCH ×2 (06:11→13:02)
[2020-07-12] MEDS: ONDANSETRON 4 MG/2 ML VIAL IVP SCH ×3 (06:13→12:56)
[2020-07-12] MEDS: METOCLOPRAMIDE 5 MG/ML 2 ML VIAL IVP SCH ×2 (06:13→13:04)
[2020-07-12] MEDS ORDERED: LEVOTHYROXINE 100 MCG TAB PO SCH (06:30)
[2020-07-12] MEDS ORDERED: LEVOTHYROXINE 75 MCG TAB PO SCH (06:30)
[2020-07-12] MEDS: ALBUTEROL NEBULIZED 2.5 MG/3 ML INHALATION SCH ×3 (07:20→11:17)
[2020-07-12 07:25] LABS: Basophils % (A) 0 %; Eosinophils # (A) 0.1 k/uL (0-0.7); Eosinophils % (A) 1 %; HCT 40.9 % (34.0-46.0); HGB 13.3 gm/dL (11.4-16.0); Lymphocytes # (A) 1.2 k/uL (1.0-4.8); Lymphocytes % (A) 12 %; MCH 29.2 pg (25.0-35.0); MCHC 32.6 g/dL (31.0-37.0); MCV 89.4 fL (80.0-100.0); Mean Platelet Volume 7.5; Monocytes # (A) 0.4 k/uL (0-1.0); Monocytes % (A) 4 %; Neutrophils # (A) 8.8 k/uL (1.3-7.7); Neutrophils % (A) 83 %; Platelet Count 222 k/uL (150-450); RBC 4.57 m/uL (3.80-5.40); RDW 12.3 % (11.5-15.5); WBC 10.7 k/uL (3.8-10.6)
[2020-07-12 07:34] LABS: African American GFR (CKD) >90 (>60 ml/min/1.73 sqM); Anion Gap 5 mmol/L; Blood Urea Nitrogen 10 mg/dL (7-17); Calcium 8.4 mg/dL (8.4-10.2); Carbon Dioxide 27 mmol/L (22-30); Chloride 107 mmol/L (98-107); Glucose 173 mg/dL (74-99); Magnesium 2.1 mg/dL (1.6-2.3); Non-African American GFR(CKD) >90 (>60 ml/min/1.73 sqM); Phosphorus 3.7 mg/dL (2.5-4.5); Potassium 4.8 mmol/L (3.5-5.1); Sodium 139 mmol/L (137-145)
--- NOTE | 2020-07-12 07:45 | FL ---
EXAMINATION TYPE: FL esophagus cervic/pharynx DATE OF EXAM: 07/12/2020 LIMITED UGI-ESOPHAGRAM: CLINICAL HISTORY: Reflux status post Jared fundoplication surgery yesterday. TECHNIQUE: Limited esophagram is performed utilizing 25 oz of Isovue-370. A total of 11 seconds of f luoroscopic time was utilized during procedure. 28 spot images saved to PACS. Comparison: Prior esophagram March 12, 2020 FINDINGS: The patient swallowed contrast without difficulty or delay. Esophageal peristalsis and mo tility are within normal limits. There is good flow of contrast along the diaphragmatic hiatus into t he stomach, there is no evidence of contrast extravasation to suggest leak. No hiatal hernia is seen. Patient remains asymptomatic. Surgical clips epigastric region and right upper quadrant, latter like ly from cholecystectomy are incidentally noted. IMPRESSION: No evidence of leak or significant obstruction status post Jared fundoplication surgery yesterday.
[2020-07-12] MEDS ORDERED: LEVOTHYROXINE SODIUM 25 MCG/ML PO SCH (09:00)
[2020-07-12] MEDS ORDERED: ENOXAPARIN 30 MG/0.3 ML SYRINGE SQ SCH (09:00)
[2020-07-12] MEDS ORDERED: PANTOPRAZOLE 40 MG/10 ML VIAL IV SCH (09:00)
[2020-07-12 09:48] VITALS: BMI 24.8
--- NOTE | 2020-07-12 12:30 | P.DS ---
Providers Date of admission: 07/12/20 06:31 Expected date of discharge: 07/12/20 Attending physician: Darlene Vick Primary care physician: Rik Kiser [facility] Course: Doing well. May go home. Julissa diet reinforced. Plan - Discharge Summary Discharge Rx Participant: Yes New Discharge Prescriptions: New Hyoscyamine Oral Drops [Levsin Drops] 0.125 mg PO Q6HR ml Simethicone 40 mg/0.6 ml Drops [Mylicon Drops] 40 mg PO Q6HR ml Scopolamine 1.5MG/72Hr Patch [TransDerm Scop] 1 patch TRANSDERM Q72H patch bisacodyL [Dulcolax] 5 mg PO DAILY PRN #10 tablet. PRN Reason: Constipation Simethicone 40 mg/0.6 ml Drops [Mylicon Drops] 40 mg PO PCHS PRN #30 ml PRN Reason: Gas Ondansetron Odt [Zofran Odt] 4 mg PO Q8HR PRN #9 tab PRN Reason: Nausea Acetaminophen Oral Susp [Tylenol Oral Susp] 500 mg PO Q4-6H PRN #400 ml PRN Reason: Pain Continue Multivitamin/Iron/Folic Acid [Centrum Complete Multivit Tab] 1 tab PO DAILY Ca/D3/Mag/Zinc/Jamil/Angel/Mgbor [Caltrate 600-D3-Min Chew Tab] 1 tab PO DAILY Beclomethasone Dipropionate [Qvar 80 mcg] 2 puff INHALATION RT-BID PRN PRN Reason: Shortness Of Breath Albuterol Sulfate [Proair Hfa] 2 puff INHALATION RT-Q6H PRN PRN Reason: Shortness Of Breath Levothyroxine Sodium [Synthroid] 150 mcg PO DAILY Levothyroxine Sodium [Tirosint-Deepika] 25 mcg PO DAILY Discharge Medication List Ca/D3/Mag/Zinc/Jamil/Angel/Mgbor [Caltrate 600-D3-Min Chew Tab] 1 tab PO DAILY 01/27/15 [History] Multivitamin/Iron/Folic Acid [Centrum Complete Multivit Tab] 1 tab PO DAILY 01/27/15 [History] Albuterol Sulfate [Proair Hfa] 2 puff INHALATION RT-Q6H PRN 06/28/17 [History] Beclomethasone Dipropionate [Qvar 80 mcg] 2 puff INHALATION RT-BID PRN 06/28/17 [History] Levothyroxine Sodium [Synthroid] 150 mcg PO DAILY 03/25/20 [History] Levothyroxine Sodium [Tirosint-Deepika] 25 mcg PO DAILY 07/10/20 [History] Acetaminophen Oral Susp [Tylenol Oral Susp] 500 mg PO Q4-6H PRN #400 ml 07/12/20 [Rx] Hyoscyamine Oral Drops [Levsin Drops] 0.125 mg PO Q6HR ml 07/12/20 [Rx] Ondansetron Odt [Zofran Odt] 4 mg PO Q8HR PRN #9 tab 07/12/20 [Rx] Scopolamine 1.5MG/72Hr Patch [TransDerm Scop] 1 patch TRANSDERM Q72H patch 07/12/20 [Rx] Simethicone 40 mg/0.6 ml Drops [Mylicon Drops] 40 mg PO PCHS PRN #30 ml 07/12/20 [Rx] Simethicone 40 mg/0.6 ml Drops [Mylicon Drops] 40 mg PO Q6HR ml 07/12/20 [Rx] bisacodyL [Dulcolax] 5 mg PO DAILY PRN #10 tablet. 07/12/20 [Rx] Follow up Appointment(s)/Referral(s): Darlene Vick MD [STAFF PHYSICIAN] - 07/17/20 Activity/Diet/Wound Care/Special Instructions: Liquid diet only. No carbonated beverages. No straws. Start Julissa soft diet, July 25 No lifting over 4 pounds in 4 weeks, August 10February shower. No bath tub soaks for 2 weeks until July 25February take [id number] Tylenol for pain. Do not remove scopolamine patch for 3 days, if present Discharge Disposition: HOME SELF-CARE
[2020-07-12 13:29] VITALS: BP 93/52; PULSE 67; TEMP 97.5
== END 2020-07-12 14:10 | disposition home or self-care (01) ==
LOC: OR 13:49 → 6PED 19:13 → OR 07-12 04:00 → 6PED 07-12 06:31
PROVIDERS: ADMIT Surgery Plastic and Reconstructive Surgery; ATTEND Surgery Plastic and Reconstructive Surgery
DX: K44.9 Diaphragmatic hernia without obstruction or gangrene (principal); K21.9 Gastro-esophageal reflux disease without esophagitis; K22.2 Esophageal obstruction; J44.9 Chronic obstructive pulmonary disease, unspecified; I67.1 Cerebral aneurysm, nonruptured; F41.9 Anxiety disorder, unspecified; F32.9 Major depressive disorder, single episode, unspecified; M19.90 Unspecified osteoarthritis, unspecified site; G40.909 Epilepsy, unspecified, not intractable, without status epilepticus; G43.909 Migraine, unspecified, not intractable, without status migrainosus; E89.0 Postprocedural hypothyroidism; R16.0 Hepatomegaly, not elsewhere classified; Z90.49 Acquired absence of other specified parts of digestive tract; Z85.850 Personal history of malignant neoplasm of thyroid; Z86.73 Personal history of transient ischemic attack (TIA), and cerebral infarction without residual deficits; Z87.891 Personal history of nicotine dependence; Z79.899 Other long term (current) drug therapy; Z79.890 Hormone replacement therapy; Z79.51 Long term (current) use of inhaled steroids; Z88.5 Allergy status to narcotic agent; Z88.6 Allergy status to analgesic agent; Z90.710 Acquired absence of both cervix and uterus
CPT/HCPCS: 43281; S2900; 74210; 80048; 83735; 84100; 85025; 94640; 94760

== ENCOUNTER 2021-09-21 08:01 | Day surgery (SDC) | payer BC ==
[2021-09-16 12:26] VITALS: BMI 27.4
[~2021-09-21 08:01] MED LIST changes: -ACETAMINOPHEN TAB 500 MG TAB PO STA; -CHLORHEXIDINE GLUCONATE 15 ML CUP MUCOUS MEM ONE; -DEXAMETHASONE SOD PHOSPHATE 10 MG/ML 1 ML VIAL IV ONE; -DEXAMETHASONE SOD PHOSPHATE 4 MG/ML 1 ML VIAL IV STA; -GABAPENTIN 300 MG CAP PO ONE; -HEPARIN SODIUM,PORCINE 5,000 UNIT/ML 1 ML VIAL SQ ONE; +LIDOCAINE 1% (10MG/ML) FOR IV START INTRADERMA PRN; -MIDAZOLAM 2 MG/2 ML VIAL IV PRN; -ONDANSETRON 4 MG/2 ML VIAL IVP ONE; -PANTOPRAZOLE 40 MG/10 ML VIAL IV ONE; -SCOPOLAMINE 1.5MG/72HR PATCH TRANSDERM SCH; -fentaNYL (PF) 50 MCG/ML 2 ML AMP IV PRN
[2021-09-21 08:15] VITALS: TEMP 96.8
[2021-09-21] MEDS ORDERED: PROPOFOL 10 MG/ML 20 ML VIAL IV ONE (08:51)
--- NOTE | 2021-09-21 09:12 | P.GSHP ---
History of Present Illness H&P Date: 09/21/21 CHIEF COMPLAINT: GERD HISTORY OF PRESENT ILLNESS: The patient is a 61-year-old female who presents reports gastroesophageal reflux disease. Upper endoscopy was offered for further evaluation and management. PAST MEDICAL HISTORY: Please see list. PAST SURGICAL HISTORY: Please see list. MEDICATIONS: Please see list. ALLERGIES: Please see list. SOCIAL HISTORY: No illicit drug use FAMILY HISTORY: No reports of Crohn disease or ulcerative colitis. REVIEW OF ORGAN SYSTEMS: CONSTITUTIONAL: No reports of fevers or chills. GI: Denies any blood in stools or constipation. PHYSICAL EXAM: VITAL SIGNS: Stable GENERAL: Well-developed and pleasant in no acute distress. HEENT: No scleral icterus. Extraocular movements grossly intact. Moist buccal mucosa. NECK: Supple without lymphadenopathy. CHEST: Unlabored respirations. Equal bilateral excursions. CARDIOVASCULAR: Regular rate and rhythm. Distal 2+ pulses. ABDOMEN: Soft, nondistended. MUSCULOSKELETAL: No clubbing, cyanosis, or edema. ASSESSMENT: 1. Gastroesophageal reflux disease PLAN: 1. Recommend proceeding with an upper endoscopy Past Medical History Past Medical History: Asthma, Cancer, CVA/TIA, Osteoarthritis (OA), Seizure Disorder, Thyroid Disorder Additional Past Medical History / Comment(s): thyroid cancer, TIA, MIGRAINE HEADACHE , SEIZURE- LAST 2006, PATIENT STATES SHE HAS A BRAIN ANEURYSM DOCTORS ARE WATCHING IT EVERY 6 MONTHS TO A YEAR. stomach pain, hx granuloma lungs, and rt shoulder spur History of Any Multi-Drug Resistant Organisms: None Reported Past Surgical History: Appendectomy, Cholecystectomy, Hernia Repair, Hysterectomy Additional Past Surgical History / Comment(s): tumor (fibroid) removed from right lung, thyroidectomy, BSO. hiatal hernia repair 07/11/2020 Past Anesthesia/Blood Transfusion Reactions: Motion Sickness Smoking Status: Former smoker - Past Family History Mother Family Medical History: COPD Additional Family Medical History / Comment(s): lifelong smoker - COPD Medications and Allergies Home Medications Medication Instructions Recorded Confirmed Type Ca/D3/Mag/Zinc/Jamil/Angel/Mgbor 1 tab PO DAILY 01/27/15 09/16/21 History [Caltrate 600-D3-Min Chew Tab] Multivitamin/Iron/Folic Acid 1 tab PO DAILY 01/27/15 09/16/21 History [Centrum Complete Multivit Tab] Albuterol Sulfate [Proair Hfa] 2 puff INHALATION RT-Q6H PRN 09/05/17 11/24/21 History Beclomethasone Dipropionate [Qvar 2 puff INHALATION RT-BID PRN 06/28/17 09/16/21 History 80 mcg] Acetaminophen Oral Susp [Tylenol 500 mg PO Q4-6H PRN #400 ml 07/12/20 09/16/21 Rx Oral Susp] bisacodyL [Dulcolax] 5 mg PO DAILY PRN #10 tablet. 07/12/20 09/16/21 Rx Cannabidiol (Cbd) [Epidiolex] 1 dose PO DAILY PRN 09/16/21 09/16/21 History Levothyroxine Sodium [Synthroid] 137 mcg PO DAILY 09/16/21 09/16/21 History Loratadine [Claritin] 10 mg PO DAILY 09/16/21 09/16/21 History Montelukast [Singulair] 10 mg PO HS 09/16/21 09/16/21 History Allergies Allergy/AdvReac Type Severity Reaction Status Date / Time hydrocodone [From Vicodin] Allergy Nausea & Verified 09/21/21 08:18 Vomiting, CONSTIPATION morphine AdvReac Nausea & Verified 09/21/21 08:18 Vomiting,rash,swelling Surgical - Exam Vital Signs Temp Pulse Resp BP Pulse Ox 96.8 F L 85 20 146/75 96 09/21/21 08:11 09/21/21 08:11 09/21/21 08:11 09/21/21 08:11 09/21/21 08:11
--- NOTE | 2021-09-21 09:30 | P.PCN ---
Date of Procedure: 09/21/21 Description of Procedure: PREOPERATIVE DIAGNOSIS: Dysphagia. Esophageal dysmotility Gastroesophageal reflux disease POSTOPERATIVE DIAGNOSIS: Dysphagia. Esophageal dysmotility Gastroesophageal reflux disease OPERATION: Esophagogastroduodenoscopy with rigid dilator over the guidewire 54 Fr. SURGEON: Darlene Vick MD ANESTHESIA: MAC. INDICATIONS: The patient is a 61-year-old male who presents with a history of dysphagia. Benefits and risks of the procedure were described. Informed consent was obtained. DESCRIPTION: The patient was brought into the endoscopy suite and laid in the left lateral decubitus position. After a timeout was confirmed, the procedure was initiated. An Olympus gastroscope was passed and the stomach was entered. Mild gastritis was identified. The scope was advanced to the duodenum which was unremarkable. Retroflexion the scope confirmed a Hill grade 1 lower esophageal valve. Next using an Micronesian rigid dilator, a guidewire was placed through the pediatric gastroscope. Next the scope was withdrawn. A 54-[place]izen [place] rigid Micronesian dilator was passed carefully along the posterior oropharynx to 50 cm and left in place for 2-3 minutes stretch. The dilator was withdrawn including the guidewire. The scope was reentered along the posterior oropharynx with no findings of full-thickness tear of the upper esophageal sphincter. No full-thickness injury was encountered. The GI tract was desufflated. The patient tolerated the procedure well. FINDINGS: Squamocolumnar junction unremarkable at 40 cm. Micronesian rigid dilator 54-[place]izen [place] completed. No hiatus hernia Hill grade 1 lower esophageal valve. No LA grade A esophagitis. RECOMMENDATIONS: Upper endoscopy as needed Plan - Discharge Summary Discharge Rx Participant: No New Discharge Prescriptions: Continue Multivitamin/Iron/Folic Acid [Centrum Complete Multivit Tab] 1 tab PO DAILY Ca/D3/Mag/Zinc/Jamil/Angel/Mgbor [Caltrate 600-D3-Min Chew Tab] 1 tab PO DAILY Beclomethasone Dipropionate [Qvar 80 mcg] 2 puff INHALATION RT-BID PRN PRN Reason: Shortness Of Breath Albuterol Sulfate [Proair Hfa] 2 puff INHALATION RT-Q6H PRN PRN Reason: Shortness Of Breath bisacodyL [Dulcolax] 5 mg PO DAILY PRN #10 tablet. PRN Reason: Constipation Acetaminophen Oral Susp [Tylenol] 500 mg PO Q4-6H PRN #400 ml PRN Reason: Pain Levothyroxine Sodium [Synthroid] 137 mcg PO DAILY Cannabidiol (Cbd) [Epidiolex] 1 dose PO DAILY PRN PRN Reason: swallowing difficulties Montelukast [Singulair] 10 mg PO HS Loratadine [Claritin] 10 mg PO DAILY Discharge Medication List Ca/D3/Mag/Zinc/Jamil/Angel/Mgbor [Caltrate 600-D3-Min Chew Tab] 1 tab PO DAILY 01/27/15 [History] Multivitamin/Iron/Folic Acid [Centrum Complete Multivit Tab] 1 tab PO DAILY 01/27/15 [History] Albuterol Sulfate [Proair Hfa] 2 puff INHALATION RT-Q6H PRN 06/28/17 [History] Beclomethasone Dipropionate [Qvar 80 mcg] 2 puff INHALATION RT-BID PRN 06/28/17 [History] Acetaminophen Oral Susp [Tylenol] 500 mg PO Q4-6H PRN #400 ml 07/12/20 [Rx] bisacodyL [Dulcolax] 5 mg PO DAILY PRN #10 tablet. 07/12/20 [Rx] Cannabidiol (Cbd) [Epidiolex] 1 dose PO DAILY PRN 09/16/21 [History] Levothyroxine Sodium [Synthroid] 137 mcg PO DAILY 09/16/21 [History] Loratadine [Claritin] 10 mg PO DAILY 09/16/21 [History] Montelukast [Singulair] 10 mg PO HS 09/16/21 [History] Follow up Appointment(s)/Referral(s): Darlene Vick MD [STAFF PHYSICIAN] - 10/06/21 Patient Instructions/Handouts: Esophageal Dilation (DC) Activity/Diet/Wound Care/Special Instructions: Warm beverages. Diet as tolerated Discharge Disposition: HOME SELF-CARE
[2021-09-21 09:53] VITALS: BP 101/56; PULSE 61; RESP 14
== END 2021-09-21 10:10 | disposition home or self-care (01) ==
LOC: ORWHC2ENDO 08:01
PROVIDERS: ATTEND Surgery Plastic and Reconstructive Surgery
DX: K22.89 Other specified disease of esophagus (principal); R13.10 Dysphagia, unspecified; K21.9 Gastro-esophageal reflux disease without esophagitis; J45.909 Unspecified asthma, uncomplicated; M19.90 Unspecified osteoarthritis, unspecified site; F41.9 Anxiety disorder, unspecified; F32.A Depression, unspecified; G40.909 Epilepsy, unspecified, not intractable, without status epilepticus; Z82.3 Family history of stroke; Z85.850 Personal history of malignant neoplasm of thyroid; G43.909 Migraine, unspecified, not intractable, without status migrainosus; I67.1 Cerebral aneurysm, nonruptured; Z90.49 Acquired absence of other specified parts of digestive tract; Z90.710 Acquired absence of both cervix and uterus; Z98.890 Other specified postprocedural states; Z87.891 Personal history of nicotine dependence; Z83.6 Family history of other diseases of the respiratory system; Z79.890 Hormone replacement therapy; Z79.899 Other long term (current) drug therapy; Z88.5 Allergy status to narcotic agent
CPT/HCPCS: 43248; J2704; 43249

== ENCOUNTER 2022-05-19 07:10 | Day surgery (SDC) | payer BC ==
[2022-05-17 12:19] VITALS: BMI 26.1
--- NOTE | 2022-05-19 07:34 | P.GSHP ---
History of Present Illness H&P Date: 05/19/22 CHIEF COMPLAINT: Colon screen HISTORY OF PRESENT ILLNESS: The patient is a 62-year-old female who presents for colon screen. Lower endoscopy was offered for further evaluation and management. PAST MEDICAL HISTORY: Please see list. PAST SURGICAL HISTORY: Please see list. MEDICATIONS: Please see list. ALLERGIES: Please see list. SOCIAL HISTORY: No illicit drug use FAMILY HISTORY: No reports of Crohn disease or ulcerative colitis. REVIEW OF ORGAN SYSTEMS: CONSTITUTIONAL: No reports of fevers or chills. PHYSICAL EXAM: VITAL SIGNS: Stable GENERAL: Well-developed pleasant in no acute distress. HEENT: No scleral icterus. Extraocular movements grossly intact. Moist buccal mucosa. NECK: Supple without lymphadenopathy. CHEST: Unlabored respirations. Equal bilateral excursions. CARDIOVASCULAR: Regular rate and rhythm. Distal 2+ pulses. ABDOMEN: Soft, nontender, nondistended. MUSCULOSKELETAL: No clubbing, cyanosis, or edema. ASSESSMENT: 1. Colon screen. PLAN: 1. Recommend proceeding with a lower endoscopy Past Medical History Past Medical History: Asthma, Cancer, CVA/TIA, Hyperlipidemia, Osteoarthritis (OA), Seizure Disorder, Thyroid Disorder Additional Past Medical History / Comment(s): Hx thyroid cancer. Hx TIA. Migraines. Hx Seizures, last seizure in 2006. "BRAIN ANEURYSM DOCTORS ARE WATCHING IT EVERY 6 MONTHS TO A YEAR. Hx fall last year with knee injury, cracked/broken ribs. Granuloma - "spots on lung could become cancerous, causing recurrent bacterial infections, congestion and flare ups of allergies and asthma". "Recent abnormal EKG, saw magnetic resonance technologist, stated nothing too concerning but have upcoming further testing". History of Any Multi-Drug Resistant Organisms: None Reported Past Surgical History: Appendectomy, Cholecystectomy, Hysterectomy Additional Past Surgical History / Comment(s): Fibrois tumor removed from right lung, thyroidectomy, BSO, hiatal hernia repair. Past Anesthesia/Blood Transfusion Reactions: No Reported Reaction, Motion Sickness Past Psychological History: Anxiety, Depression Smoking Status: Former smoker Past Alcohol Use History: Rare Additional Past Alcohol Use History / Comment(s): STARTED SMOKING AT AGE 18 QUIT AT AGE 54, SMOKED 1/2 PACK A MONTH. Past Drug Use History: None Reported Additional Drug Use History / Comment(s): CBD oil occasionally. Aware no use 24 hrs prior to procedure. - Past Family History Mother Family Medical History: COPD Additional Family Medical History / Comment(s): Lifelong smoker. Medications and Allergies Home Medications Medication Instructions Recorded Confirmed Type Albuterol Sulfate [Proair Hfa] 2 puff INHALATION Q6H 06/28/17 05/17/22 History Beclomethasone Dipropionate [Qvar 2 puff INHALATION BID 06/28/17 05/17/22 History 80 mcg] Loratadine [Claritin] 10 mg PO DAILY 09/16/21 05/17/22 History Montelukast [Singulair] 10 mg PO HS 09/16/21 05/17/22 History Calcium Chew (Unknown Dose) 1 tab PO DAILY 05/17/22 05/17/22 History Calcium/Vitamin D(Unknown Dose 1 tab PO DAILY 05/17/22 05/17/22 History Cider Vinegar [Apple Cider Vinegar] 300 mg PO DAILY 05/17/22 05/17/22 History Levothyroxine Sodium [Synthroid] 150 mcg PO QAM 05/17/22 05/17/22 History Linaclotide [Linzess] 145 mcg PO HS 05/17/22 05/17/22 History Multivit with Calcium,Iron,Min 1 each PO DAILY 05/17/22 05/17/22 History [Women's Multivitamin] Zinc 50 mg PO DAILY 05/17/22 05/17/22 History Allergies Allergy/AdvReac Type Severity Reaction Status Date / Time acetaminophen [From [place]] Allergy Nausea & Verified 05/17/22 12:20 Vomiting hydrocodone [From Vicodin] Allergy Nausea & Verified 05/17/22 12:20 Vomiting, CONSTIPATION morphine AdvReac Nausea & Verified 05/17/22 12:20 Vomiting,rash,swelling
[2022-05-19 07:42] VITALS: RESP 16; TEMP 96.9
[2022-05-19] MEDS ORDERED: PROPOFOL 10 MG/ML 20 ML VIAL IV ONE (08:19)
--- NOTE | 2022-05-19 09:13 | P.PN ---
Progress Note - Text Progress Note Date: 05/19/22 Patient reports moderate abdominal pain and distention in presence of incomplete colonoscopy and diverticulosis. Barium enema cancelled. Will proceed with stat CT scan.
--- NOTE | 2022-05-19 09:18 | P.PCN ---
Date of Procedure: 05/19/22 Description of Procedure: PREOPERATIVE DIAGNOSIS: Colonoscopy screening. POSTOPERATIVE DIAGNOSIS: Sigmoid colon stricture OPERATION: Colonoscopy to the sigmoid colon SURGEON: Darlene Vick MD. ANESTHESIA: MAC. INDICATIONS: The patient is a 62-year-old female who presents for colonoscopy screening. Last colonoscopy over 10 years ago. Benefits and risks were described and informed consent was obtained. DESCRIPTION OF PROCEDURE: The patient had undergone Sutab prep. The patient had been brought into the operating room and laid in the left lateral decubitus position. After adequate intravenous sedation, the rectum was examined with 2% lidocaine jelly. External hemorrhoids were encountered. The rectal tone was within normal limits. No lesions were palpated in the rectal vault. An Olympus pediatric colonoscope was advanced with stricture found in the sigmoid colon. Despite multiple attempts at advancement, the scope could not pass. The prep was poor. Scattered diverticulosis was encountered. Retroflexion of the scope demonstrated grade 2 and internal hemorrhoids without active bleeding or inflammation. The colon was desufflated. The patient had tolerated the procedure well. Withdrawal time was over 6 minutes. FINDINGS: Aronchick preparation quality scale 4 (1-5) Procedure terminated to sigmoid due to severe stricture. Internal hemorrhoids, grade 2 External prolapsed hemorrhoids, grade 1 RECOMMENDATIONS: Recommend barium enema for completion colonoscopy Plan - Discharge Summary Discharge Rx Participant: No New Discharge Prescriptions: Continue Beclomethasone Dipropionate [Qvar 80 mcg] 2 puff INHALATION BID Albuterol Sulfate [Proair Hfa] 2 puff INHALATION Q6H Multivit with Calcium,Iron,Min [Women's Multivitamin] 1 each PO DAILY Calcium Chew (Unknown Dose) 1 tab PO DAILY Zinc 50 mg PO DAILY Calcium/Vitamin D(Unknown Dose 1 tab PO DAILY Montelukast [Singulair] 10 mg PO HS Loratadine [Claritin] 10 mg PO DAILY Levothyroxine Sodium [Synthroid] 150 mcg PO QAM Cider Vinegar [Apple Cider Vinegar] 300 mg PO DAILY Linaclotide [Linzess] 145 mcg PO HS Discharge Medication List Albuterol Sulfate [Proair Hfa] 2 puff INHALATION Q6H 06/28/17 [History] Beclomethasone Dipropionate [Qvar 80 mcg] 2 puff INHALATION BID 06/28/17 [History] Loratadine [Claritin] 10 mg PO DAILY 11/24/21 [History] Montelukast [Singulair] 10 mg PO HS 09/16/21 [History] Calcium Chew (Unknown Dose) 1 tab PO DAILY 05/17/22 [History] Calcium/Vitamin D(Unknown Dose 1 tab PO DAILY 05/17/22 [History] Cider Vinegar [Apple Cider Vinegar] 300 mg PO DAILY 05/17/22 [History] Levothyroxine Sodium [Synthroid] 150 mcg PO QAM 05/17/22 [History] Linaclotide [Linzess] 145 mcg PO HS 05/17/22 [History] Multivit with Calcium,Iron,Min [Women's Multivitamin] 1 each PO DAILY 05/17/22 [History] Zinc 50 mg PO DAILY 05/17/22 [History] Follow up Appointment(s)/Referral(s): Darlene Vick MD [STAFF PHYSICIAN] - 06/08/22 Patient Instructions/Handouts: *[facility] - (Anesthesia) Endoscopy Discharge Instructions, Diverticulitis (GEN) Activity/Diet/Wound Care/Special Instructions: Repeat colonoscopy in 3 months, July 2022. Needs barium enema today if possible. Discharge Disposition: HOME SELF-CARE
[2022-05-19] MEDS ORDERED: SIMETHICONE 80 MG CHEWABLE PO ONE (09:52)
[2022-05-19] MEDS ORDERED: IV FLUID CONTINUATION 600 ML IV ONE (10:43)
[2022-05-19] MEDS ORDERED: LACTATED RINGERS 1,000 ML IV ONE (10:43)
[2022-05-19 11:33] VITALS: BP 131/76; PULSE 64
--- NOTE | 2022-05-19 11:37 | P.PN ---
Progress Note - Text Progress Note Date: 05/19/22 Computed tomography scan reviewed without perforation. Otherwise stable for discharge with outpatient follow-up.
--- NOTE | 2022-05-19 12:12 | CT ---
EXAMINATION TYPE: CT abdomen pelvis w con CT DLP: 884.3 mGycm, Automated exposure control for dose reduction was used. DATE OF EXAM: 05/19/2022 11:29 AM COMPARISON: None. CLINICAL INDICATION:Female, 62 years old with history of Abdominal pain, generalize after inc colonos copy; Abdominal pain, bloating post colonoscopy. TECHNIQUE: Standard CT of the abdomen and pelvis following the administration of 100 cc of Isovue 3 00 IV contrast material and oral contrast. Coronal and sagittal reformats were performed. FINDINGS: LOWER CHEST: Hypoventilation changes. ABDOMEN LIVER: Unremarkable GALLBLADDER AND BILE DUCTS: The gallbladder is surgically absent. No biliary duct dilatation. PANCREAS: Unremarkable. SPLEEN: Not enlarged. Punctate calcifications within the spleen. ADRENAL GLANDS: Unremarkable. KIDNEYS AND URETERS: No evidence of hydronephrosis or renal calculus. No suspicious lesion. Retroaort ic left renal vein. PELVIS BLADDER: Unremarkable REPRODUCTIVE: The uterus is surgically absent. ABDOMEN & PELVIS STOMACH AND BOWEL: Stomach and duodenum are unremarkable. Filling defect demonstrated within the cecu m measuring 4.6 x 3.7 cm.Gaseous distention of the colon likely related to recent colonoscopy. No tree dence of bowel obstruction. PERITONEUM: No evidence of pneumoperitoneum or free fluid. VASCULATURE: Mild atherosclerotic calcifications are present throughout the abdominal aorta and its b ranches. No evidence of aortic aneurysm. MUSCULOSKELETAL: No acute osseous abnormalities. Multilevel Schmorl's nodes. LYMPH NODES: No gross evidence for lymphadenopathy. SOFT TISSUE/ABDOMINAL WALL: Unremarkable IMPRESSION: 1. No evidence for bowel perforation. 2. 4.6 cm filling defect within the cecum which may represent stool versus mass. Correlation with rec ent colonoscopy results is recommended.
== END 2022-05-19 11:54 | disposition home or self-care (01) ==
LOC: ORWHC2ENDO 07:10
PROVIDERS: ATTEND Surgery Plastic and Reconstructive Surgery
DX: Z12.11 Encounter for screening for malignant neoplasm of colon (principal); K57.30 Diverticulosis of large intestine without perforation or abscess without bleeding; K64.1 Second degree hemorrhoids; K64.4 Residual hemorrhoidal skin tags; K56.699 Other intestinal obstruction unspecified as to partial versus complete obstruction; J45.909 Unspecified asthma, uncomplicated; E78.5 Hyperlipidemia, unspecified; M19.90 Unspecified osteoarthritis, unspecified site; G40.909 Epilepsy, unspecified, not intractable, without status epilepticus; G43.909 Migraine, unspecified, not intractable, without status migrainosus; E89.0 Postprocedural hypothyroidism; F41.9 Anxiety disorder, unspecified; F32.A Depression, unspecified; R10.84 Generalized abdominal pain; K21.9 Gastro-esophageal reflux disease without esophagitis; Z86.73 Personal history of transient ischemic attack (TIA), and cerebral infarction without residual deficits; Z85.850 Personal history of malignant neoplasm of thyroid; Z90.49 Acquired absence of other specified parts of digestive tract; Z90.710 Acquired absence of both cervix and uterus; Z98.890 Other specified postprocedural states; Z90.722 Acquired absence of ovaries, bilateral; Z87.891 Personal history of nicotine dependence; Z79.899 Other long term (current) drug therapy; Z79.890 Hormone replacement therapy; Z88.6 Allergy status to analgesic agent; Z88.5 Allergy status to narcotic agent; Z82.5 Family history of asthma and other chronic lower respiratory diseases
CPT/HCPCS: 74177; J2704; Q9967; G0104; 45330

== ENCOUNTER → 2022-08-12 | Outpatient (CLI) | payer BC ==
[2022-08-12 18:41] LABS: African American GFR (CKD) 101.6 (60.0-200.0); Albumin 4.4 g/dL (3.8-4.9); Albumin/Globulin Ratio 1.41 (1.60-3.17); Anion Gap 11.9 mmol/L (10.00-18.00); BUN/Creat Ratio 18.84 Ratio (12.00-20.00); Calcium 8.9 mg/dL (8.7-10.3); Carbon Dioxide 26.4 mmol/L (20.0-27.5); Globulin 3.1 g/dL (1.6-3.3); Non-African American GFR(CKD) 87.6 (60.0-200.0); Potassium 4.1 mmol/L (3.5-5.5); Total Bilirubin 0.3 mg/dL (0.30-1.20); Total Protein 7.4 g/dL (6.2-8.2)
[2022-08-12 19:10] LABS: HCT 45.6 % (37.2-46.3); HGB 14.7 g/dL (12.0-15.0); MCH 29.3 pg (27.0-32.0); MCHC 32.2 g/dL (32.0-37.0); Mean Platelet Volume 10.4 fL (9.5-12.2); NRBC Per 100 WBC 0 /100 WBCS (0.0-0.0); Platelet Count 281 X 10*3/uL (140-440); RBC 5.01 X 10*6/uL (4.10-5.20); RDW 12.5 % (11.5-14.5); WBC 6.04 X 10*3/uL (4.50-10.00)
== END | disposition home or self-care (01) ==
LOC: LABWHC1 10:17
PROVIDERS: ATTEND Surgery Plastic and Reconstructive Surgery
DX: Z01.810 Encounter for preprocedural cardiovascular examination (principal)
CPT/HCPCS: 36415; 80053; 85027

== ENCOUNTER 2022-08-19 10:18 | Inpatient (IN) | payer BC ==
[2022-08-17 14:57] VITALS: BMI 26.1
--- NOTE | 2022-08-19 08:04 | P.GSHP ---
History of Present Illness H&P Date: 08/19/22 CHIEF COMPLAINT: Sigmoid diverticulitis HISTORY OF PRESENT ILLNESS: The patient is a 62-year-old female with sigmoid diverticulosis and sigmoid stricture. She symptomatic with severe change in bowel habits. Despite conservative measures, patient presents for surgical resection. She presents for colonoscopy for surgical tattoo and sigmoid colon resection. PAST MEDICAL HISTORY: Please see list. PAST SURGICAL HISTORY: Please see list. MEDICATIONS: Please see list. ALLERGIES: Please see list. SOCIAL HISTORY: No illicit drug use FAMILY HISTORY: No reports of Crohn disease or ulcerative colitis. REVIEW OF ORGAN SYSTEMS: CONSTITUTIONAL: Denies any fever or chills. HEENT: Denies any trouble with vision or nosebleeds. No difficulty swallowing. LYMPHATIC: The patient denies any lumps and bumps around the neck. ENDOCRINE: Has hypothyroidism. Has blood sugar glucose intolerance. RESPIRATORY: Has chronic obstructive pulmonary disease. CARDIOVASCULAR: Denies any chest pain, palpitations, or recent heart attacks. Has hyperlipidemia. GASTROINTESTINAL: Has chronic diverticulitis. Has chronic constipation. Has gastroesophageal reflux disease. GENITOURINARY: Has increased urinary frequency. MUSCULOSKELETAL: Has back pain, stiffness, joint arthritis. NEUROLOGIC: Denies any numbness or tingling along the distal extremities. No seizure disorders or headaches. PSYCHIATRIC: Denies depression or suidical ideation. HEMATOLOGIC: Denies any abnormal bleeding or bruising. PHYSICAL EXAM: VITAL SIGNS: Stable GENERAL: Well-developed pleasant in no acute distress. HEENT: No scleral icterus. Extraocular movements grossly intact. Moist buccal mucosa. NECK: Supple without lymphadenopathy. CHEST: Unlabored respirations. Equal bilateral excursions. CARDIOVASCULAR: Regular rate and rhythm. Distal 2+ pulses. ABDOMEN: Soft, nontender, nondistended. MUSCULOSKELETAL: No clubbing, cyanosis, or edema. NERUO: Cranial nerves 2-12 grossly intact. PSYCH: Alert and oriented to person place and time. ASSESSMENT: 1. Sigmoid diverticulosis with stricture 2. Chronic obstructive pulmonary disease PLAN: 1. Benefits and risks of surgical robotic sigmoid resection was reviewed in detail. Robotic-assisted approach was also described. 2. Enhanced colon recovery program. 3. DVT prophylaxis. 4. Antibiotic prophylaxis. 5. Inpatient hospitalization greater than 2 nights. 6. Patient is elevated risk due to gastroesophageal reflux disease including chronic obstructive pulmonary disease Past Medical History Past Medical History: Asthma, Cancer, CVA/TIA, GERD/Reflux, Hyperlipidemia, Osteoarthritis (OA), Seizure Disorder, Thyroid Disorder Additional Past Medical History / Comment(s): Diverticulitis. Saw Dr azam Machuca recently, told me I have swelling in esophagus and small hiatal hernia. Hx thyroid cancer. Hx TIA. Migraines. Hx Seizures, last seizure in 2006. "BRAIN ANEURYSM DOCTORS ARE WATCHING IT EVERY 6 MONTHS TO A YEAR. Hx fall last year with knee injury, cracked/broken ribs. Granuloma - "spots on lung could become cancerous, causing recurrent bacterial infections, congestion and flare ups of allergies and asthma". 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 Past Anesthesia/Blood Transfusion Reactions: No Reported Reaction, Motion Sickness Past Psychological History: Anxiety, Depression Smoking Status: Former smoker Past Alcohol Use History: Rare Additional Past Alcohol Use History / Comment(s): STARTED SMOKING AT AGE 18 QUIT AT AGE 54, SMOKED 1/2 PACK A MONTH. Past Drug Use History: None Reported Additional Drug Use History / Comment(s): CBD oil occasionally. Aware no use 24 hrs prior to procedure. - Past Family History Mother Family Medical History: COPD, Deep Vein Thrombosis (DVT) Additional Family Medical History / Comment(s): Lifelong smoker. Medications and Allergies Home Medications Medication Instructions Recorded Confirmed Type Albuterol Sulfate [Proair Hfa] 2 puff INHALATION Q6H PRN 06/28/17 08/17/22 History Beclomethasone Dipropionate [Qvar 2 puff INHALATION BID 06/28/17 08/17/22 History 80 mcg] Loratadine [Claritin] 10 mg PO DAILY 09/16/21 08/17/22 History Montelukast [Singulair] 10 mg PO HS 09/16/21 08/17/22 History Calcium Chew (Unknown Dose) 1 tab PO DAILY 05/17/22 08/17/22 History Calcium/Vitamin D(Unknown Dose 1 tab PO DAILY 05/17/22 08/17/22 History Cider Vinegar [Apple Cider Vinegar] 300 mg PO DAILY 05/17/22 08/17/22 History Levothyroxine Sodium [Synthroid] 150 mcg PO QAM 05/17/22 08/17/22 History Multivit with Calcium,Iron,Min 1 each PO DAILY 05/17/22 08/17/22 History [Women's Multivitamin] Zinc 50 mg PO DAILY 05/17/22 08/17/22 History Allergies Allergy/AdvReac Type Severity Reaction Status Date / Time acetaminophen [From [place]] Allergy Nausea & Verified 08/17/22 14:36 Vomiting hydrocodone [From Vicodin] Allergy Nausea & Verified 08/17/22 14:36 Vomiting, CONSTIPATION morphine AdvReac Nausea & Verified 08/17/22 14:36 Vomiting,rash,swelling
[~2022-08-19 10:18] MED LIST changes: +Antibiotics per Pharmacy 1 EACH MISC MISCELLANE PRN; +HEPARIN SODIUM,PORCINE/PF 5,000 UNIT/0.5 ML SYRINGE SQ PRN; -LACTATED RINGERS 1,000 ML IV SCH; -LIDOCAINE 1% (10MG/ML) FOR IV START INTRADERMA PRN
[2022-08-19] MEDS: LACTATED RINGERS 1,000 ML IV SCH (10:52)
[2022-08-19] MEDS ORDERED: PROPOFOL 10 MG/ML 20 ML VIAL IV ONE (11:23)
[2022-08-19 11:27] LABS: Basophils % (A) 1 %; Eosinophils # (A) 0.1 k/uL (0-0.7); Eosinophils % (A) 2 %; HCT 39.1 % (34.0-46.0); HGB 13.6 gm/dL (11.4-16.0); Lymphocytes # (A) 1.8 k/uL (1.0-4.8); Lymphocytes % (A) 36 %; MCH 30.7 pg (25.0-35.0); MCHC 34.7 g/dL (31.0-37.0); MCV 88.4 fL (80.0-100.0); Mean Platelet Volume 7.1; Monocytes # (A) 0.4 k/uL (0-1.0); Monocytes % (A) 7 %; Neutrophils # (A) 2.6 k/uL (1.3-7.7); Neutrophils % (A) 51 %; Platelet Count 260 k/uL (150-450); RBC 4.43 m/uL (3.80-5.40); RDW 12.4 % (11.5-15.5); WBC 5.1 k/uL (3.8-10.6)
[2022-08-19 11:44] LABS: ALT 20 U/L (4-34); AST 24 U/L (14-36); African American GFR (CKD) >90 (>60 ml/min/1.73 sqM); Albumin 3.7 g/dL (3.5-5.0); Alkaline Phosphatase 87 U/L (38-126); Anion Gap 13 mmol/L; Blood Urea Nitrogen 12 mg/dL (7-17); Calcium 8.3 mg/dL (8.4-10.2); Carbon Dioxide 23 mmol/L (22-30); Chloride 105 mmol/L (98-107); Glucose 82 mg/dL (74-99); Non-African American GFR(CKD) >90 (>60 ml/min/1.73 sqM); Potassium 3.7 mmol/L (3.5-5.1); Sodium 141 mmol/L (137-145); Total Bilirubin 0.4 mg/dL (0.2-1.3); Total Protein 6.3 g/dL (6.3-8.2)
--- NOTE | 2022-08-19 11:45 | P.PCN ---
Date of Procedure: 08/19/22 Description of Procedure: PREOPERATIVE DIAGNOSIS: Sigmoid diverticulosis POSTOPERATIVE DIAGNOSIS: Sigmoid diverticulosis with stricture OPERATION: Colonoscopy to the sigmoid colon. SURGEON: Darlene Vick MD. ANESTHESIA: MAC. INDICATIONS: The patient is a 62-year-old female who presents with diverticulosis. Benefits and risks were described and informed consent was obtained. DESCRIPTION OF PROCEDURE: The patient had undergone Sutab prep. She had been brought into the operating room and laid in the left lateral decubitus position. After adequate intravenous sedation, the rectum was examined with 2% lidocaine jelly. No external hemorrhoids were encountered. The rectal tone was loose. No lesions were palpated in the rectal vault. An Olympus colonoscope was advanced along the rectum to a very tortuous sigmoid colon. The scope was then exchanged for a pediatric colonoscope. Despite multiple maneuvers, the sigmoid colon had severe tortuosity preventing further advancement of scope. The scope was passed to 40 cm from the anal verge. No evidence of polyps were identified. As the patient posed high risk for perforation with persistence of the procedure, the procedure was discontinued. The colon was desufflated. The patient had tolerated the procedure well. Withdrawal time was over 6 minutes. FINDINGS: Aronchik preparation quality scale 2 (1-5) Tortuous sigmoid colon with stricture preventing further advancement of the scope. No external prolapsed hemorrhoids. Scope advanced to sigmoid colon at 40 cm. No arteriovenous malformations. No adenomatous polyps. No focal colitis. RECOMMENDATIONS: Recommend sigmoid colectomy due to symptomatic diverticulosis with stricture
[2022-08-19] MEDS ORDERED: PEG 3350 (420 GM/BTL) + LYTES 4,000 ML BOTTLE PO ONE (13:00)
[2022-08-19] MEDS: metroNIDAZOLE 500 MG TAB PO SCH ×4 (13:04→22:28)
[2022-08-19] MEDS: NEOMYCIN 500 MG TAB PO SCH ×4 (13:04→22:28)
[2022-08-19] MEDS: ONDANSETRON 4 MG/2 ML VIAL IVP ONE (14:53)
[2022-08-19] MEDS ORDERED: ACETAMINOPHEN TAB 500 MG TAB PO ONE (14:53)
[2022-08-19] MEDS: D5-0.45% NACL WITH KCL 20MEQ/L 1,000 ML IV SCH (15:46)
[2022-08-19] MEDS ORDERED: TEMAZEPAM 15 MG CAP PO ONE (21:00)
[2022-08-20] MEDS ORDERED: metroNIDAZOLE-NS PMX 500 MG in SALINE 1 100ML.BAG IVPB PRN (05:00)
[2022-08-20] MEDS ORDERED: HEPARIN SODIUM,PORCINE/PF 5,000 UNIT/0.5 ML SYRINGE SQ PRN (05:00)
[2022-08-20 05:40] LABS: Partial Thromboplastin Time 24.9 sec (22.0-30.0); Prothrombin Time 11.1 sec (9.0-12.0)
[2022-08-20] MEDS ORDERED: ACETAMINOPHEN TAB 500 MG TAB PO PRN (07:00)
[2022-08-20] MEDS ORDERED: ALVIMOPAN 12 MG CAPSULE PO PRN (07:00)
[2022-08-20] MEDS ORDERED: MELOXICAM 7.5 MG TAB PO PRN (07:00)
[2022-08-20] MEDS: D5-0.45% NACL WITH KCL 20MEQ/L 1,000 ML IV SCH ×3 (07:07→23:56)
[2022-08-20] MEDS: LACTATED RINGERS 1,000 ML IV SCH (07:10)
[2022-08-20 07:32] LABS: Basophils % (A) 1 %; Eosinophils # (A) 0.1 k/uL (0-0.7); Eosinophils % (A) 2 %; HCT 41.1 % (34.0-46.0); HGB 13.8 gm/dL (11.4-16.0); Lymphocytes # (A) 1.7 k/uL (1.0-4.8); Lymphocytes % (A) 28 %; MCH 30.7 pg (25.0-35.0); MCHC 33.6 g/dL (31.0-37.0); MCV 91.3 fL (80.0-100.0); Mean Platelet Volume 7.9; Monocytes # (A) 0.3 k/uL (0-1.0); Monocytes % (A) 6 %; Neutrophils # (A) 3.7 k/uL (1.3-7.7); Neutrophils % (A) 61 %; Platelet Count 254 k/uL (150-450); RDW 12.4 % (11.5-15.5)
[2022-08-20 07:49] LABS: ALT 24 U/L (4-34); AST 27 U/L (14-36); African American GFR (CKD) >90 (>60 ml/min/1.73 sqM); Albumin 3.5 g/dL (3.5-5.0); Albumin/Globulin Ratio 1.3; Alkaline Phosphatase 73 U/L (38-126); Anion Gap 8 mmol/L; Blood Urea Nitrogen 7 mg/dL (7-17); Calcium 8.1 mg/dL (8.4-10.2); Carbon Dioxide 22 mmol/L (22-30); Chloride 109 mmol/L (98-107); Globulin 2.6 g/dL; Glucose 118 mg/dL (74-99); Non-African American GFR(CKD) >90 (>60 ml/min/1.73 sqM); Potassium 4.3 mmol/L (3.5-5.1); Sodium 139 mmol/L (137-145); Total Bilirubin 0.4 mg/dL (0.2-1.3); Total Protein 6.1 g/dL (6.3-8.2)
--- NOTE | 2022-08-20 08:04 | XR ---
EXAMINATION TYPE: XR chest 1V DATE OF EXAM: 08/20/2022 7:31 AM COMPARISON: Chest radiographs from 06/28/2017 TECHNIQUE: XR chest 1V Frontal view of the chest. CLINICAL INDICATION:Female, 62 years old with history of COPD; FINDINGS: Lungs/Pleura: Interstitial streaky atelectasis most pronounced in the right lung base with slightly e levated right diaphragm. Findings are not significantly changed from prior in 2017, there is is incre ased lucency in the lung apices. There is no evidence of pleural effusion, focal consolidation, or pn eumothorax. Pulmonary vascularity: Unremarkable. Heart/mediastinum: Cardiomediastinal silhouette is unremarkable. Musculoskeletal: No acute osseous pathology. IMPRESSION: 1. No acute cardiopulmonary disease/process. No significant change from 2017. 2. COPD changes.
[2022-08-20] MEDS ORDERED: LACTATED RINGERS 1,000 ML IV ONE ×4 (09:15→16:00)
[2022-08-20] MEDS ORDERED: DEXAMETHASONE SOD PHOSPHATE 4 MG/ML 1 ML VIAL IVP ONE (09:44)
[2022-08-20] MEDS: ONDANSETRON 4 MG/2 ML VIAL IVP ONE (09:44)
[2022-08-20] MEDS ORDERED: MIDAZOLAM 2 MG/2 ML VIAL IV ONE (10:08)
[2022-08-20] MEDS ORDERED: fentaNYL (PF) 50 MCG/ML 2 ML AMP ONE (10:57)
[2022-08-20] MEDS ORDERED: GLYCOPYRROLATE 0.2 MG/ML 2 ML VIAL ONE (10:57)
[2022-08-20] MEDS ORDERED: METOPROLOL TARTRATE 5 MG/5 ML VIAL IVP ONE (10:57)
[2022-08-20] MEDS ORDERED: SUCCINYLCHOLINE CHLORIDE 200 MG/10 ML VIAL IV ONE (10:57)
[2022-08-20] MEDS ORDERED: HYDROmorphone (PF) 1 MG/ML ONE (10:57)
[2022-08-20] MEDS ORDERED: LIDOCAINE 2% INJ 20 MG/ML (2 ML VIAL) ONE (10:57)
[2022-08-20] MEDS ORDERED: DEXAMETHASONE SOD PHOSPHATE 4 MG/ML 1 ML VIAL ONE (10:57)
[2022-08-20] MEDS ORDERED: ROCURONIUM 10 MG/ML (5 ML VIAL) IV ONE (10:57)
[2022-08-20] MEDS ORDERED: ROPIVACAINE 5 MG/ML 30 ML VIAL ONE (10:57)
[2022-08-20] MEDS ORDERED: PROPOFOL 10 MG/ML 20 ML VIAL IV ONE (10:57)
[2022-08-20] MEDS ORDERED: SODIUM CHLORIDE 0.9% (PF) 10 ML VIAL ONE (10:57)
[2022-08-20] MEDS ORDERED: NEOSTIGMINE 1 MG/ML 10 ML VIAL ONE (10:57)
[2022-08-20] MEDS ORDERED: LIDOCAINE 1%-EPI 1:100,000 20 ML VIAL SQ ONE (11:53)
[2022-08-20] MEDS ORDERED: ALBUTEROL NEBULIZED 2.5 MG/3 ML INHALATION PRN (15:31)
[2022-08-20] MEDS ORDERED: HYDROmorphone 0.5 MG/0.5 ML SYRINGE IVP ONE (15:52)
[2022-08-20] MEDS ORDERED: BENZOCAINE/MENTHOL LOZENG 1 EACH LOZENGE MUCOUS MEM PRN (16:01)
[2022-08-20] MEDS ORDERED: NALOXONE 0.4 MG/ML 1 ML VIAL IV PRN (16:03)
--- NOTE | 2022-08-20 16:11 | P.OP ---
Date of Procedure: 08/20/22 Description of Procedure: SURGEON: JEY TSE MD PREOPERATIVE DIAGNOSES: 1. Sigmoid diverticulitis with sigmoid stricture 2. Chronic obstructive pulmonary disease 3. Gastroesophageal reflux disease 4. Hypothyroidism 5. Seizure disorder 6. History of transient ischemic attack 7. Generalized anxiety disorder 8. Depressive disorder 9. Hyperlipidemia 10. Postoperative nausea and vomiting POSTOPERATIVE DIAGNOSES: 1. Sigmoid diverticulitis with sigmoid stricture 2. Chronic obstructive pulmonary disease 3. Gastroesophageal reflux disease 4. Hypothyroidism 5. Seizure disorder 6. History of transient ischemic attack 7. Generalized anxiety disorder 8. Depressive disorder 9. Hyperlipidemia 10. Postoperative nausea and vomiting 11. Severe pelvic adhesions due to prior hysterectomy OPERATION: 1. Robotic-assisted daVinci Xi lysis of adhesions over 1 hour 2. Robotic-assisted daVinci Xi sigmoid colectomy with low anterior resection using 29 mm Ethicon powered stapler 3. Intraoperative colonoscopy used for sigmoidoscopy Anesthesia: GETA, local, regional Estimated Blood Loss (ml): 50 Pathology: 1. Sigmoid colon 2. EEA donuts 3. Proximal colotomy Condition: stable Disposition: floor COMPLICATIONS: None. Operative Findings: 1. Dense pelvic adhesions from prior hysterectomy with functional partial obstruction of sigmoid colon 2. Anastomosis with EEA stapler 29 mm 3. No tension or torsion along the anastomosis 4. Doughnuts thick and both sides and viable 5. Moderately redundant sigmoid colon without tension at anastomosis 6. Negative leak test with viable anastomosis. INDICATIONS: The patient is a 62-year-old female who presents with chronic constipation including partial large bowel obstruction due to sigmoid diverticulitis. Benefits and risks of surgical intervention was described in detail including infection, injury to the ureter, colostomy creation, possibility for additional surgery was discussed at length. Informed consent was obtained. All questions of the patient and family were answered. DESCRIPTION: Earlier the patient had undergone a bowel prep using the enhanced colon recovery program. The patient was transferred to the operating room and placed supine. After general induction, the abdomen was prepped and draped in standard sterile fashion. Ioban was placed along the abdomen to minimize any contamination of skin floor. A Gamino catheter was placed. After a timeout protocol was performed, attention was then brought to the left upper quadrant whereby a 0 degree 5 mm laparoscopic trocar entry was performed. The abdominal cavity was entered and insufflated to 15 mmHg pressure, which was tolerated well. Diagnostic laparoscopy confirmed moderately redundant sigmoid colon and active sigmoid volvulus. The small bowel was unremarkable. Next a robotic 12-mm trocar was placed along the right lateral abdominal wall 15 cm superior from the pelvis. Two 8 mm ports were placed along the upper abdomen. Ports were placed 10 cm apart from each other including 15 cm away from the target anatomy of the left pelvis. The 12-mm port was exchanged for an 8 mm robotic port at the left upper quadrant. The robot was docked along the left lateral abdomen. The patient was positioned in steep Trendelenburg position at 21-degrees. Using atraumatic graspers and vessel sealer, the robotic system was docked and primed as described. Instruments were interchanged by the lpn medical assistant including hook cautery, needle funeral driver, robotic stapler and vessel sealer. The robot stapler was prepared along the right lateral abdominal wall. The stapler 12-mm port was arranged along the right lateral abdominal wall. Next, attention was brought to identify the sigmoid colon. The sigmoid colon was densely adherent to the left lower quadrant including the left pelvis from her prior hysterectomy. Extensive lysis of adhesions over 1 hour was performed to release the colon from the abdominal wall and pelvis. A stay suture using 3- 0 silk was placed along the anterior serosa of the redundant sigmoid colon. The sigmoid mesentery was mobilized using a vessel sealer whereby the descending colon was marked and tagged. Using multiple fires of the robot stapler 60 mm black and green load, the proximal sigmoid colon was divided. The mesentery of the sigmoid colon was mobilized towards the pelvic brim and sacral promontory using a vessel sealer. The sigmoid volvulus was reduced with viable colon. Next, the sigmoid colon was divided using the robotic stapler 60 mm black staple loads. The rest of the sigmoid colon mesentery was mobilized using vessel sealer. Additionally, the sigmoid colon was mobilized onto the colon to minimize injury to the ureters. I went to the foot of the bed to confirm sizers and placement of 29-mm Ethicon powered stapler. I re-scrubbed into the case. The robotic arms were temporarily undocked. A 29-mm anvil was placed with a 3-0 silk sutured at the tip of the anvil garment mender. Then the anvil was placed via the left upper quadrant 12 mm port. All robotic arms were re-docked. I went back to the console. The staple line was opened using cautery. The anvil was entered into the proximal descending colon. The colotomy was closed using 60 mm green load. Next, the sharp tip of the anvil garment mender was brought through the staple line. The anvil garment mender was removed from the abdomen using empty clip appliers. I went to the foot of the bed to place the powered Ethicon 29 mm stapler via the rectum. The anvil and stapler were mated for 1 minute. The doughnuts were intact on both sides and thick. An intraoperative leak test was performed as I inserted the colonoscope to the anastomosis. Endoscopic images were obtained. Irrigation was placed in the pelvis and no air leaks were identified. Irrigation fluid was aspirated from the pelvis until dry. I went back to the console. All sponges and needles were removed from the abdominal cavity. The robot was undocked. I re-scrubbed into the case. Via the left upper quadrant port, the sigmoid colon was removed using 15 mm Endo Catch bag. All sponges were removed from the abdominal cavity. The left upper quadrant incision was widened to 3-cm. No contamination had occurred throughout the case. The fascial defect was oversewn using 0 Vicryl and a Mk Murrell. Next all pneumoperitoneum was evacuated from the abdominal cavity. The 8-mm trocar sites were reapproximated using 4-0 Monocryl in an interrupted subcuticular fashion. Local anesthetic was infiltrated to all wounds for postop analgesia. All incisions were also cleansed with diluted hydrogen peroxide. An Aquacell Ag advance surgical dressing was placed over the colon extraction site. Liquid glue was applied to the rest of the skin incisions. The patient had tolerated the procedure well. The patient was extubated successfully. The patient was transferred to the postanesthesia care unit in stable condition. Intraoperative findings were described in detail to the patient's family.
[2022-08-20] MEDS: KETOROLAC 15 MG/ML 1 ML VIAL IVP PRN (16:35)
[2022-08-20] MEDS: ACETAMINOPHEN IV (For NPO) 1,000 MG in EMPTY BAG 1 BAG IVPB SCH ×2 (17:42→23:56)
[2022-08-20] MEDS: SIMETHICONE 40 MG/0.6 ML DROPS 2,000 MG/30 ML BOTTLE PO SCH ×2 (17:43→22:46)
--- NOTE | 2022-08-20 17:58 | P.CONS ---
History of Present Illness - Reason for Consult Consult date: 08/20/22 Medical management Requesting physician: Darlene Vick - Chief Complaint Abdominal surgery - History of Present Illness This is a pleasant 62-year-old patient, was chronic stable medical conditions include COPD, GERD, hypertension, hyperlipidemia seizure disorder, hypothyroid. Patient for 2 days had been having lower abdominal pain on and off. Normally had to require laxatives to have about 2 bowel movements a week. Loss seizure was in 2006. Has a brain aneurysm that is being followed. Patient underwent robotic-assisted lysis of adhesions with shown white colectomy with low anterior resection. Patient is abdominal binder in place. Gamino catheter. Postprocedure slightly drowsy but able to answer questions. Abdominal pain is present. In bed. Patient has been ordered clear liquids by Dr. Monaco. Review of systems: GEN.: Tired EYES: None HEENT: None NECK: None RESPIRATORY: None CARDIOVASCULAR: None GASTROINTESTINAL: None GENITOURINARY: None MUSCULOSKELETAL: Some joint pains LYMPHATICS: None HEMATOLOGICAL: None PSYCHIATRY: None NEUROLOGICAL: None Past medical history to include: COPD, GERD, hyperlipidemia, osteoarthritis, seizure disorder loss and again in 2006, hypothyroid, diverticulitis, brain aneurysm being followed, lung granuloma , anxiety depression Social history: Lives with her . Started smoking ages 18 and quit 8 years ago. Smoked half a pack a month. Alcohol rarely. CBD oil occasionally. Physical examination: VITAL SIGNS: 60, 16, 150/70, 100% on 2 L] GENERAL: BMI 38.3, laying in bed tired a bit lethargic but arousable able to answer questions. EYES: Pupils equal. Conjunctiva normal. HEENT: External appearance of nose and ears normal, oral cavity grossly normal. NECK: JVD not raised; masses not palpable. HEART: First and second heart sounds are normal; no edema. LUNGS: Respiratory rate normal; decreased breath sounds. ABDOMEN: Soft, tender, no guarding rigidity, liver spleen not palpable, no ma sses palpable. Laparoscopic sites PSYCH: Alert and oriented x3; mood and affect lethargicl. MUSCULOSKELETAL:No Clubbing/cyanosis;muscles-grossly intact NEUROLOGICAL: Cranial nerves grossly intact; no facial asymmetry, power and sensation grossly intact. LYMPHATICS: No lymph nodes palpable in the axilla and neck INVESTIGATIONS, reviewed in the clinical context: WBC 6 hemoglobin 13.8. Lives 254 potassium 4.3 creatinine 0.53 Chest x-ray film personally reviewed by me-possible hyperinflation Assessment and plan: -Low anterior resection for partial colon obstruction from adhesions. Resected Clear liquids -GERD Omeprazole 20 mg twice a day -Hypothyroid Synthroid -COPD in a previous smoker Beclomethasone 80 g 2 puffs twice a day, pro-air when necessary, Singulair -Brain aneurysm being followed as an outpatient -History of seizures last episode being in 2006. -Obesity BMI 38.3 Weight loss measures IV fluids. Pain management. Resume home medications. Venodyne boots for DVT prophylaxis. Up in a chair as started. Care was discussed the patient questions answered. Thank you Dr. Vick Past Medical History Past Medical History: Asthma, Cancer, CVA/TIA, GERD/Reflux, Hyperlipidemia, Osteoarthritis (OA), Seizure Disorder, Thyroid Disorder Additional Past Medical History / Comment(s): Diverticulitis. Saw Dr azam Machuca recently, told me I have swelling in esophagus and small hiatal hernia. Hx thyro id cancer. Hx TIA. Migraines. Hx Seizures, last seizure in 2006. "BRAIN ANEURYSM DOCTORS ARE WATCHING IT EVERY 6 MONTHS TO A YEAR. Hx fall last year with knee injury, cracked/broken ribs. Granuloma - "spots on lung could become cancerous, causing recurrent bacterial infections, congestion and flare ups of allergies and asthma". 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 Past Anesthesia/Blood Transfusion Reactions: No Reported Reaction, Motion Sickness Past Psychological History: Anxiety, Depression Smoking Status: Former smoker Past Alcohol Use History: Rare Additional Past Alcohol Use History / Comment(s): STARTED SMOKING AT AGE 18 QUIT AT AGE 54, SMOKED 1/2 PACK A MONTH. Past Drug Use History: None Reported Additional Drug Use History / Comment(s): CBD oil occasionally. Aware no use 24 hrs prior to procedure. - Past Family History Mother Family Medical History: COPD, Deep Vein Thrombosis (DVT) Additional Family Medical History / Comment(s): Lifelong smoker. Medications and Allergies Home Medications Medication Instructions Recorded Confirmed Type Albuterol Sulfate [Proair Hfa] 2 puff INHALATION Q6H PRN 06/28/17 08/19/22 History Beclomethasone Dipropionate [Qvar 2 puff INHALATION BID 06/28/17 08/19/22 History 80 mcg] Loratadine [Claritin] 10 mg PO DAILY 09/16/21 08/19/22 History Montelukast [Singulair] 10 mg PO HS 09/16/21 08/19/22 History Calcium Chew (Unknown Dose) 1 tab PO DAILY 05/17/22 08/19/22 History Calcium/Vitamin D(Unknown Dose 1 tab PO DAILY 05/17/22 08/19/22 History Levothyroxine Sodium [Synthroid] 150 mcg PO QAM 05/17/22 08/19/22 History Multivit with Calcium,Iron,Min 1 each PO DAILY 05/17/22 08/19/22 History [Women's Multivitamin] Zinc 50 mg PO DAILY 05/17/22 08/19/22 History Omeprazole 20 mg PO BID 08/19/22 08/19/22 History Acetaminophen Tab [Tylenol Tab] 1,000 mg PO Q6HR PRN #30 tablet 08/20/22 Rx Ibuprofen [Motrin] 600 mg PO Q8HR PRN #30 tab 08/20/22 Rx Simethicone [Gas-X] 125 mg PO AC-TID PRN #20 capsule 08/20/22 Rx Allergies Allergy/AdvReac Type Severity Reaction Status Date / Time hydrocodone [From Vicodin] Allergy Nausea & Verified 08/19/22 10:49 Vomiting, CONSTIPATION morphine AdvReac Nausea & Verified 08/19/22 10:49 Vomiting,rash,swelling Physical Exam Vitals: Vital Signs Temp Pulse Pulse Resp BP BP Pulse Ox 08/20/22 17:00 60 16 150/70 100 08/20/22 16:45 59 L 16 143/70 100 08/20/22 16:30 60 16 150/82 98 08/20/22 16:13 58 L 16 145/72 99 08/20/22 15:58 57 L 16 150/74 100 08/20/22 15:43 74 16 158/77 100 08/20/22 15:27 61 16 160/78 100 08/20/22 15:12 63 16 164/77 100 08/20/22 14:56 97.3 F L 78 18 146/70 99 08/20/22 10:19 61 16 145/73 100 08/20/22 09:15 97.3 F L 60 16 132/67 98 08/20/22 07:58 97.4 F L 59 L 17 155/70 97 08/20/22 01:02 97.6 F 58 L 15 111/70 98 08/19/22 20:00 97.6 F 59 L 14 104/66 99 Intake and Output 08/20/22 08/20/22 08/20/22 06:59 14:59 22:59 Intake Total 1900 500 Output Total 1050 Balance 850 500 Intake: IV 1900 500 Output: Urine 1000 Estimated Blood Loss 50 Other: # Voids 4 1 # Bowel Movements 1 Results CBC & Chem 7: 08/20/22 06:48 08/20/22 05:08 Labs: Abnormal Lab Results - Last 24 Hours (Table) 08/20/22 Range/Units 05:08 Chloride 109 H (98-107) mmol/L Glucose 118 H (74-99) mg/dL Calcium 8.1 L (8.4-10.2) mg/dL Total Protein 6.1 L (6.3-8.2) g/dL
[2022-08-20] MEDS: fentaNYL PCA 500 MCG/50 ML BAG IV PRN (19:25)
[2022-08-20] MEDS: FLUTICASONE 110 MCG INHALER INHALATION SCH (20:31)
[2022-08-20] MEDS: ONDANSETRON 4 MG/2 ML VIAL IVP PRN (20:33)
[2022-08-20] MEDS: PANTOPRAZOLE 40 MG TABLET PO SCH (22:45)
[2022-08-20] MEDS: MONTELUKAST 10 MG TAB PO SCH (22:45)
[2022-08-20] MEDS: HEPARIN SODIUM,PORCINE/PF 5,000 UNIT/0.5 ML SYRINGE SQ SCH (22:46)
[2022-08-21] MEDS: ACETAMINOPHEN IV (For NPO) 1,000 MG in EMPTY BAG 1 BAG IVPB SCH ×2 (06:01→15:13)
[2022-08-21] MEDS: LEVOTHYROXINE 75 MCG TAB PO SCH (06:01)
[2022-08-21] MEDS: LACTATED RINGERS 1,000 ML IV SCH (06:55)
[2022-08-21] MEDS: HEPARIN SODIUM,PORCINE/PF 5,000 UNIT/0.5 ML SYRINGE SQ SCH ×2 (07:14→21:33)
[2022-08-21] MEDS: LORATADINE 10 MG TAB PO SCH (07:14)
[2022-08-21] MEDS: ALVIMOPAN 12 MG CAPSULE PO SCH ×2 (07:14→21:33)
[2022-08-21] MEDS: PANTOPRAZOLE 40 MG TABLET PO SCH ×2 (07:15→21:33)
[2022-08-21] MEDS: FLUTICASONE 110 MCG INHALER INHALATION SCH ×2 (07:30→20:11)
[2022-08-21] MEDS: ONDANSETRON 4 MG/2 ML VIAL IVP PRN (07:56)
[2022-08-21 08:15] LABS: Basophils # (A) 0.1 k/uL (0-0.2); Basophils % (A) 0 %; Eosinophils # (A) 0.1 k/uL (0-0.7); Eosinophils % (A) 1 %; HCT 40.6 % (34.0-46.0); HGB 13.8 gm/dL (11.4-16.0); Lymphocytes # (A) 1.4 k/uL (1.0-4.8); Lymphocytes % (A) 7 %; MCH 31.1 pg (25.0-35.0); MCV 91.5 fL (80.0-100.0); Mean Platelet Volume 8.4; Monocytes # (A) 0.9 k/uL (0-1.0); Monocytes % (A) 4 %; Neutrophils # (A) 17.2 k/uL (1.3-7.7); Neutrophils % (A) 87 %; Platelet Count 304 k/uL (150-450); RBC 4.44 m/uL (3.80-5.40); RDW 12.4 % (11.5-15.5); WBC 19.7 k/uL (3.8-10.6)
[2022-08-21] MEDS: D5-0.45% NACL WITH KCL 20MEQ/L 1,000 ML IV SCH ×2 (08:17→23:37)
[2022-08-21 08:33] LABS: African American GFR (CKD) >90 (>60 ml/min/1.73 sqM); Anion Gap 9 mmol/L; Blood Urea Nitrogen 5 mg/dL (7-17); Calcium 8.6 mg/dL (8.4-10.2); Carbon Dioxide 24 mmol/L (22-30); Chloride 105 mmol/L (98-107); Glucose 116 mg/dL (74-99); Non-African American GFR(CKD) >90 (>60 ml/min/1.73 sqM); Potassium 4.6 mmol/L (3.5-5.1); Sodium 138 mmol/L (137-145)
[2022-08-21] MEDS: SIMETHICONE 40 MG/0.6 ML DROPS 2,000 MG/30 ML BOTTLE PO SCH ×4 (08:59→21:35)
--- NOTE | 2022-08-21 09:19 | P.PN ---
Progress Note - Text Progress Note Date: 08/21/22 Patient's complaints of significant nausea. She feels she may throughout. On exam vital signs are stable. Abdomen soft. Incision is clean dry intact. Status post laparoscopic low anterior resection. Patient will remain nothing by mouth today. We will resume her diet once her ileus improved.
--- NOTE | 2022-08-21 11:12 | P.ANPRN ---
Procedure Note - Anesthesia - Nerve Block Performed Bilateral Erector Spinae Single Time Out Performed: Yes Date of Procedure: 08/20/22 Procedure Start Time: :07 Procedure Stop Time: :13 Location of Patient: PreOp Indication: Acute Post-Operative Pain, Requested by Surgeon Sedation Type: Sedate with meaningful contact maintained Preparation: Sterile Prep, Sterile Dressing Position: Prone Needle Types: Pajunk Needle Gauge: 21 Ultrasound used to visualize needle placement: Yes Ultrasound used to observe medication spread: Yes Blood Aspirated: No Pain Paresthesia on Injection Noted: No Resistance on Injection: Normal Image Stored and Saved: Yes Events: Uneventful and Well Tolerated (Ropivacaine 0.5% 15 mL plus normal saline 10 mL plus dexamethasone 4 mg given bilaterally at L1)
--- NOTE | 2022-08-21 11:35 | P.PN ---
Progress Note - Text Progress Note Date: 08/21/22 - Chief Complaint Abdominal surgery Hospital course: This is a pleasant 62-year-old patient, was chronic stable medical conditions include COPD, GERD, hypertension, hyperlipidemia seizure disorder, hypothyroid. Patient for 2 days had been having lower abdominal pain on and off. Normally had to require laxatives to have about 2 bowel movements a week. Loss seizure was in 2006. Has a brain aneurysm that is being followed. Patient underwent robotic-assisted lysis of adhesions with shown white colectomy with low anterior resection. Patient is abdominal binder in place. Gamino catheter. Postprocedure slightly drowsy but able to answer questions. Abdominal pain is present. In bed. Patient has been ordered clear liquids by Dr. Vick. 08/21/2022: Laying in bed. Some abdominal pain. Did pass some flatus. Did vomit once. Remains on clear liquids. Advised to sit up on a chair. Increase activity. Active Medications Albuterol Sulfate (Albuterol Nebulized 2.5 Mg/3 Ml) 2.5 mg INHALATION Q6H PRN PRN Reason: Shortness Of Breath Alvimopan (Alvimopan 12 Mg Capsule) 12 mg PO BID [facility] Stop: 08/27/22 21:01 Last Admin: 08/21/22 07:14 Dose: 12 mg Benzocaine/Menthol (Benzocaine/Menthol Lozeng 1 Each Lozenge) 1 each MUCOUS MEM Q1HR PRN PRN Reason: Sore Throat Last Admin: 08/21/22 06:03 Dose: 1 each Fentanyl Citrate (Fentanyl Piping Designer 500 Mcg/50 Ml Bag) 500 mcg IV PER PROTOCOL PRN; Protocol PRN Reason: Pain Control Last Admin: 08/20/22 19:25 Dose: 500 mcg Fluticasone Propionate (Fluticasone 110 Mcg Inhaler) 2 puff INHALATION RT-BID [facility] Last Admin: 08/21/22 07:30 Dose: 2 puff Heparin Sodium (Porcine) (Heparin Sodium,Porcine/Pf 5,000 Unit/0.5 Ml Syringe) 5,000 unit SQ Q12HR [facility] Last Admin: 08/21/22 07:14 Dose: 5,000 unit Lactated Ringer's (Lactated Ringers) 1,000 mls @ 20 mls/hr IV .Q24H [facility] Stop: 09/18/22 06:10 Last Admin: 08/21/22 06:55 Dose: Not Given Potassium Chloride/Dextrose/Sod Cl (D5%-1/2ns-Kcl 20 Meq/L Iv Solution) 1,000 mls @ 100 mls/hr IV .Q10H [facility] Stop: 09/18/22 15:01 Last Admin: 08/21/22 08:17 Dose: 100 mls/hr Acetaminophen 1,000 mg/ IV (Solution) 100 mls @ 400 mls/hr IVPB Q6HR [facility] Stop: 08/21/22 12:01 Last Admin: 08/21/22 06:01 Dose: 400 mls/hr Ketorolac Tromethamine (Ketorolac 15 Mg/Ml 1 Ml Vial) 15 mg IVP Q6HR PRN PRN Reason: Mild to Moderate Pain Stop: 08/22/22 16:02 Last Admin: 08/20/22 16:35 Dose: 15 mg Levothyroxine Sodium (Levothyroxine 75 Mcg Tab) 150 mcg PO 0630 [facility] Last Admin: 08/21/22 06:01 Dose: 150 mcg Loratadine (Loratadine 10 Mg Tab) 10 mg PO DAILY [facility] Last Admin: 08/21/22 07:14 Dose: 10 mg Montelukast Sodium (Montelukast 10 Mg Tab) 10 mg PO HS [facility] Last Admin: 08/20/22 22:45 Dose: 10 mg Naloxone HCl (Naloxone 0.4 Mg/Ml 1 Ml Vial) 0.2 mg IV Q2M PRN PRN Reason: Opioid Reversal Ondansetron HCl (Ondansetron 4 Mg/2 Ml Vial) 4 mg IVP Q6HR PRN PRN Reason: Nausea And Vomiting Last Admin: 08/21/22 07:56 Dose: 4 mg Pantoprazole Sodium (Pantoprazole 40 Mg Tablet) 40 mg PO BID [facility] Last Admin: 08/21/22 07:15 Dose: 40 mg Simethicone (Simethicone 40 Mg/0.6 Ml Drops 2,000 Mg/30 Ml Bottle) 40 mg PO QID [facility] Last Admin: 08/21/22 08:59 Dose: 40 mg Past medical history to include: COPD, GERD, hyperlipidemia, osteoarthritis, seizure disorder loss and again in 2006, hypothyroid, diverticulitis, brain aneurysm being followed, lung granuloma, anxiety depression Social history: Lives with her . Started smoking ages 18 and quit 8 years ago. Smoked half a pack a month. Alcohol rarely. CBD oil occasionally. Physical examination: VITAL SIGNS: 97.8, 78, 16, 94 x 54, 97% room air GENERAL: , laying in bed tired awake EYES: Pupils equal. Conjunctiva normal. HEENT: External appearance of nose and ears normal, oral cavity grossly normal. NECK: JVD not raised; masses not palpable. HEART: First and second heart sounds are normal; no edema. LUNGS: Respiratory rate normal; decreased breath sounds. ABDOMEN: Soft, tender, no guarding rigidity, liver spleen not palpable, no masses palpable. Binder PSYCH: Alert and oriented x3; mood and affect tired INVESTIGATIONS, reviewed in the clinical context: 08/21/2022: WBC 19.7 hemoglobin 13.8 potassium 4.6 creatinine 0.53 WBC 6 hemoglobin 13.8. Lives 254 potassium 4.3 creatinine 0.53 Chest x-ray film personally reviewed by me-possible hyperinflation Assessment and plan: -Low anterior resection for partial colon obstruction from adhesions. Resected Clear liquids -Leukocytosis, likely reactive from surgery. No obvious evidence of infection. Follow clinically. -GERD Omeprazole 20 mg twice a day -Hypothyroid Synthroid -COPD in a previous smoker Beclomethasone 80 g 2 puffs twice a day, pro-air when necessary, Singulair -Brain aneurysm being followed as an outpatient -History of seizures last episode being in 2006. -Obesity BMI 38.3 Weight loss measures IV fluids. Pain management. Repeat CBC. Clear liquids. Activity as tolerated. Up in a chair. Thank you Dr. Vick
[2022-08-21] MEDS: KETOROLAC 15 MG/ML 1 ML VIAL IVP PRN (19:54)
[2022-08-21] MEDS: MONTELUKAST 10 MG TAB PO SCH (21:33)
[2022-08-21] MEDS: fentaNYL PCA 500 MCG/50 ML BAG IV PRN (23:04)
[2022-08-22] MEDS: D5-0.45% NACL WITH KCL 20MEQ/L 1,000 ML IV SCH ×3 (02:50→19:35)
[2022-08-22 04:06] LABS: African American GFR (CKD) >90 (>60 ml/min/1.73 sqM); Anion Gap 8 mmol/L; Blood Urea Nitrogen 4 mg/dL (7-17); Calcium 8.1 mg/dL (8.4-10.2); Carbon Dioxide 24 mmol/L (22-30); Chloride 108 mmol/L (98-107); Glucose 113 mg/dL (74-99); Non-African American GFR(CKD) >90 (>60 ml/min/1.73 sqM); Potassium 3.9 mmol/L (3.5-5.1); Sodium 140 mmol/L (137-145)
[2022-08-22 04:20] LABS: Basophils % (A) 0 %; Eosinophils # (A) 0.1 k/uL (0-0.7); Eosinophils % (A) 1 %; HCT 36.6 % (34.0-46.0); HGB 12.5 gm/dL (11.4-16.0); Lymphocytes # (A) 2.7 k/uL (1.0-4.8); Lymphocytes % (A) 24 %; MCH 31.2 pg (25.0-35.0); MCHC 34.2 g/dL (31.0-37.0); MCV 91.1 fL (80.0-100.0); Mean Platelet Volume 7.6; Monocytes # (A) 0.5 k/uL (0-1.0); Monocytes % (A) 4 %; Neutrophils % (A) 70 %; Platelet Count 245 k/uL (150-450); RBC 4.02 m/uL (3.80-5.40); RDW 12.7 % (11.5-15.5); WBC 11.4 k/uL (3.8-10.6)
[2022-08-22] MEDS: LEVOTHYROXINE 75 MCG TAB PO SCH (05:37)
[2022-08-22] MEDS: FLUTICASONE 110 MCG INHALER INHALATION SCH ×2 (07:10→20:20)
[2022-08-22] MEDS: PANTOPRAZOLE 40 MG TABLET PO SCH ×2 (09:00→20:09)
[2022-08-22] MEDS: HEPARIN SODIUM,PORCINE/PF 5,000 UNIT/0.5 ML SYRINGE SQ SCH ×2 (09:00→20:10)
[2022-08-22] MEDS: ALVIMOPAN 12 MG CAPSULE PO SCH (09:00)
[2022-08-22] MEDS: LORATADINE 10 MG TAB PO SCH (09:00)
[2022-08-22] MEDS: SIMETHICONE 40 MG/0.6 ML DROPS 2,000 MG/30 ML BOTTLE PO SCH ×4 (09:12→20:12)
--- NOTE | 2022-08-22 11:56 | P.PN ---
Progress Note - Text Progress Note Date: 08/22/22 - Chief Complaint Abdominal surgery Hospital course: This is a pleasant 62-year-old patient, was chronic stable medical conditions include COPD, GERD, hypertension, hyperlipidemia seizure disorder, hypothyroid. Patient for 2 days had been having lower abdominal pain on and off. Normally had to require laxatives to have about 2 bowel movements a week. Loss seizure was in 2006. Has a brain aneurysm that is being followed. Patient underwent robotic-assisted lysis of adhesions with shown white colectomy with low anterior resection. Patient is abdominal binder in place. Gamino catheter. Postprocedure slightly drowsy but able to answer questions. Abdominal pain is present. In bed. Patient has been ordered clear liquids by Dr. Vick. 08/21/2022: Laying in bed. Some abdominal pain. Did pass some flatus. Did vomit once. Remains on clear liquids. Advised to sit up on a chair. Increase activity. 08/22/2022: Patient has been up in the hallway. Clear liquid diet. Had's couple small BMs. Abdominal pain better. On fentanyl drip. Active Medications Albuterol Sulfate (Albuterol Nebulized 2.5 Mg/3 Ml) 2.5 mg INHALATION Q6H PRN PRN Reason: Shortness Of Breath Benzocaine/Menthol (Benzocaine/Menthol Lozeng 1 Each Lozenge) 1 each MUCOUS MEM Q1HR PRN PRN Reason: Sore Throat Last Admin: 08/21/22 06:03 Dose: 1 each Fentanyl Citrate (Fentanyl Hand Grinder 500 Mcg/50 Ml Bag) 500 mcg IV PER PROTOCOL PRN; Protocol PRN Reason: Pain Control Last Admin: 08/21/22 23:04 Dose: 500 mcg Fluticasone Propionate (Fluticasone 110 Mcg Inhaler) 2 puff INHALATION RT-BID [facility] Last Admin: 08/22/22 07:10 Dose: 2 puff Heparin Sodium (Porcine) (Heparin Sodium,Porcine/Pf 5,000 Unit/0.5 Ml Syringe) 5,000 unit SQ Q12HR [facility] Last Admin: 08/22/22 09:00 Dose: 5,000 unit Potassium Chloride/Dextrose/Sod Cl (D5%-1/2ns-Kcl 20 Meq/L Iv Solution) 1,000 mls @ 100 mls/hr IV .Q10H [facility] Stop: 09/18/22 15:01 Last Admin: 08/22/22 09:00 Dose: 100 mls/hr Ketorolac Tromethamine (Ketorolac 15 Mg/Ml 1 Ml Vial) 15 mg IVP Q6HR PRN PRN Reason: Mild to Moderate Pain Stop: 08/22/22 16:02 Last Admin: 08/21/22 19:54 Dose: 15 mg Levothyroxine Sodium (Levothyroxine 75 Mcg Tab) 150 mcg PO 0630 [facility] Last Admin: 08/22/22 05:37 Dose: 150 mcg Loratadine (Loratadine 10 Mg Tab) 10 mg PO DAILY [facility] Last Admin: 08/22/22 09:00 Dose: 10 mg Montelukast Sodium (Montelukast 10 Mg Tab) 10 mg PO HS [facility] Last Admin: 08/21/22 21:33 Dose: 10 mg Naloxone HCl (Naloxone 0.4 Mg/Ml 1 Ml Vial) 0.2 mg IV Q2M PRN PRN Reason: Opioid Reversal Ondansetron HCl (Ondansetron 4 Mg/2 Ml Vial) 4 mg IVP Q6HR PRN PRN Reason: Nausea And Vomiting Last Admin: 08/21/22 07:56 Dose: 4 mg Pantoprazole Sodium (Pantoprazole 40 Mg Tablet) 40 mg PO BID [facility] Last Admin: 08/22/22 09:00 Dose: 40 mg Simethicone (Simethicone 40 Mg/0.6 Ml Drops 2,000 Mg/30 Ml Bottle) 40 mg PO QID [facility] Last Admin: 08/22/22 09:12 Dose: Not Given Past medical history to include: COPD, GERD, hyperlipidemia, osteoarthritis, seizure disorder loss and again in 2006, hypothyroid, diverticulitis, brain aneurysm being followed, lung granuloma, anxiety depression Social history: Lives with her . Started smoking ages 18 and quit 8 years ago. Smoked half a pack a month. Alcohol rarely. CBD oil occasionally. Physical examination: VITAL SIGNS: 98.1, 72, 16, 1 31 x 73, 95% room air GENERAL: , laying in bed awake EYES: Pupils equal. Conjunctiva normal. HEENT: External appearance of nose and ears normal, oral cavity grossly normal. NECK: JVD not raised; masses not palpable. HEART: First and second heart sounds are normal; no edema. LUNGS: Respiratory rate normal; decreased breath sounds. ABDOMEN: Soft,decreased tender, no guarding rigidity, liver spleen not palpable, no masses palpable. Binder PSYCH: Alert and oriented x3; mood and affect normal INVESTIGATIONS, reviewed in the clinical context: 08/22/2022: WBC 11.4 hemoglobin 12.5 potassium 3.9 creatinine 0.61 08/21/2022: WBC 19.7 hemoglobin 13.8 potassium 4.6 creatinine 0.53 WBC 6 hemoglobin 13.8. Lives 254 potassium 4.3 creatinine 0.53 Chest x-ray film personally reviewed by me-possible hyperinflation Assessment and plan: -Low anterior resection for partial colon obstruction from adhesions. Resected Clear liquids -Leukocytosis, likely reactive from surgery. No obvious evidence of infection.: Coming down Follow clinically. -GERD Omeprazole 20 mg twice a day -Hypothyroid Synthroid -COPD in a previous smoker Beclomethasone 80 g 2 puffs twice a day, pro-air when necessary, Singulair -Brain aneurysm being followed as an outpatient -History of seizures last episode being in 2006. -Obesity BMI 38.3 Weight loss measures IV fluids. Pain management. Clear liquids. increase activity. Discussed. Thank you Dr. Vick
--- NOTE | 2022-08-22 13:49 | P.PN ---
Progress Note - Text Progress Note Date: 08/22/22 Patient still has complaints of nausea. She states her pain is a 510. On exam vital signs appear stable. Abdomen soft. Incision sites are clean and intact. Status post laparoscopic sigmoid clipped. Patient to receive supportive care.
[2022-08-22] MEDS: ONDANSETRON 4 MG/2 ML VIAL IVP PRN (19:35)
[2022-08-22] MEDS: MONTELUKAST 10 MG TAB PO SCH (20:09)
[2022-08-23] MEDS: fentaNYL PCA 500 MCG/50 ML BAG IV PRN (00:57)
[2022-08-23] MEDS: LEVOTHYROXINE 75 MCG TAB PO SCH (06:07)
[2022-08-23 07:40] VITALS: RESP 18
[2022-08-23] MEDS ORDERED: ACETAMINOPHEN TAB 500 MG TAB PO SCH (08:15)
[2022-08-23] MEDS: FLUTICASONE 110 MCG INHALER INHALATION SCH (08:37)
[2022-08-23] MEDS: PANTOPRAZOLE 40 MG TABLET PO SCH (09:00)
[2022-08-23] MEDS: LORATADINE 10 MG TAB PO SCH (09:01)
[2022-08-23] MEDS: HEPARIN SODIUM,PORCINE/PF 5,000 UNIT/0.5 ML SYRINGE SQ SCH (09:02)
[2022-08-23 09:25] LABS: Basophils % (A) 0 %; Eosinophils # (A) 0.2 k/uL (0-0.7); Eosinophils % (A) 2 %; HCT 40.3 % (34.0-46.0); HGB 13.6 gm/dL (11.4-16.0); Lymphocytes # (A) 1.7 k/uL (1.0-4.8); Lymphocytes % (A) 20 %; MCH 30.7 pg (25.0-35.0); MCHC 33.8 g/dL (31.0-37.0); MCV 90.8 fL (80.0-100.0); Mean Platelet Volume 8.3; Monocytes # (A) 0.5 k/uL (0-1.0); Monocytes % (A) 6 %; Neutrophils # (A) 5.9 k/uL (1.3-7.7); Neutrophils % (A) 71 %; Platelet Count 210 k/uL (150-450); RBC 4.44 m/uL (3.80-5.40); RDW 12.5 % (11.5-15.5); WBC 8.3 k/uL (3.8-10.6)
[2022-08-23] MEDS: SIMETHICONE 40 MG/0.6 ML DROPS 2,000 MG/30 ML BOTTLE PO SCH (10:42)
--- NOTE | 2022-08-23 11:49 | P.PN ---
Subjective Progress Note Date: 08/23/22 CHIEF COMPLAINT: Sigmoid diverticulitis with stricture HISTORY OF PRESENT ILLNESS: Patient is postop day #3 status post robotic- assisted sigmoid colectomy with lower anterior resection and lysis of adhesions. Patient reports her pain is improving each day. She does have some pain on the left side of the abdomen. She did start having bowel movements yesterday. She is having flatus. No further vomiting. Denies any nausea. Tolerating clear liquid diet. Afebrile. WBC normalized to 8.3 hgb 13.6 platelets 210 Patient seen and examined by Dr. hutchison who is covering for Dr. Vick PHYSICAL EXAM: VITAL SIGNS: Reviewed. GENERAL: Well-developed in no acute distress. HEENT: No sclera icterus. Extraocular movements grossly intact. Moist buccal mucosa. Head is atraumatic, normocephalic. ABDOMEN: Soft. Nondistended. Incision sites clean dry and intact NEUROLOGIC: Alert and oriented. Cranial nerves II through XII grossly intact. ASSESSMENT: 1. Sigmoid diverticulitis with sigmoid stricture 2. Chronic obstructive pulmonary disease 3. Gastroesophageal reflux disease 4. Hypothyroidism 5. Seizure disorder 6. History of transient ischemic attack 7. Generalized anxiety disorder 8. Depressive disorder 9. Hyperlipidemia 10. Postoperative nausea and vomiting 11. Severe pelvic adhesions due to prior hysterectomy PLAN: -Advance diet to full liquids -Tylenol scheduled added for pain control -Continue pain management -Continue to ambulate -Discontinue IV fluids -GI prophylaxis Protonix and DVT prophylaxis subcu heparin Physician Tailings Worker note has been reviewed by physician. Signing provider agrees with the documented findings, assessment, and plan of care. Objective - Vital Signs Vital signs: Vital Signs Temp 97.9 F 08/23/22 07:38 Pulse 78 08/23/22 07:38 Resp 18 08/23/22 07:38 BP 125/65 08/23/22 07:38 Pulse Ox 91 L 08/23/22 07:38 FiO2 21 08/22/22 20:20 Intake & Output 08/22/22 08/23/22 08/23/22 18:59 06:59 18:59 Intake Total 1080 Balance 1080 Intake: Oral 1080 Other: Voiding Method Toilet Toilet Toilet # Voids 3 4 # Bowel Movements 1 - Labs CBC & Chem 7: 08/23/22 08:30 08/22/22 03:36
--- NOTE | 2022-08-23 13:56 | P.DS ---
Providers Date of admission: 08/20/22 08:06 Expected date of discharge: 08/23/22 Attending physician: Darlene Vick Consults: 08/20/22 16:11 Consult Physician Routine Consulting Provider: Rai Andre Consult Reason/Comments: Medical management Do you want consulting provider notified?: Yes Primary care physician: [facility] Hospital Course: Discharge diagnosis 1. Sigmoid diverticulitis with sigmoid stricture 2. Chronic obstructive pulmonary disease 3. Gastroesophageal reflux disease 4. Hypothyroidism 5. Seizure disorder 6. History of transient ischemic attack 7. Generalized anxiety disorder 8. Depressive disorder 9. Hyperlipidemia 10. Postoperative nausea and vomiting 11. Severe pelvic adhesions due to prior hysterectomy Hospital course The patient is a 62-year-old female who presents with chronic constipation including partial large bowel obstruction due to sigmoid diverticulitis. Patient is status post robotic-assisted sigmoid colectomy with lower anterior resection and lysis of adhesions. Patient tolerated surgery well. She is tolerating diet. She is having bowel movements and flatus. She has been up and ambulating. She is afebrile. Her pain is controlled. She is stable for discharge. Physician Poultry Breeder note has been reviewed by physician. Signing provider agrees with the documented findings, assessment, and plan of care. Patient Condition at Discharge: Stable Plan - Discharge Summary Discharge Rx Participant: No New Discharge Prescriptions: New Simethicone [Gas-X] 125 mg PO AC-TID PRN #20 capsule PRN Reason: Pain Ibuprofen [Motrin] 600 mg PO Q8HR PRN #30 tab PRN Reason: Pain Acetaminophen Tab [Tylenol Tab] 1,000 mg PO Q6HR PRN #30 tablet PRN Reason: Pain Continue Beclomethasone Dipropionate [Qvar 80 mcg] 2 puff INHALATION BID Albuterol Sulfate [Proair Hfa] 2 puff INHALATION Q6H PRN PRN Reason: Shortness Of Breath Multivit with Calcium,Iron,Min [Women's Multivitamin] 1 each PO DAILY Calcium Chew (Unknown Dose) 1 tab PO DAILY Zinc 50 mg PO DAILY Calcium/Vitamin D(Unknown Dose 1 tab PO DAILY Montelukast [Singulair] 10 mg PO HS Loratadine [Claritin] 10 mg PO DAILY Levothyroxine Sodium [Synthroid] 150 mcg PO QAM Omeprazole 20 mg PO BID Discontinued Cider Vinegar [Apple Cider Vinegar] 300 mg PO DAILY Discharge Medication List Albuterol Sulfate [Proair Hfa] 2 puff INHALATION Q6H PRN 06/28/17 [History] Beclomethasone Dipropionate [Qvar 80 mcg] 2 puff INHALATION BID 06/28/17 [History] Loratadine [Claritin] 10 mg PO DAILY 09/16/21 [History] Montelukast [Singulair] 10 mg PO HS 09/16/21 [History] Calcium Chew (Unknown Dose) 1 tab PO DAILY 05/17/22 [History] Calcium/Vitamin D(Unknown Dose 1 tab PO DAILY 05/17/22 [History] Levothyroxine Sodium [Synthroid] 150 mcg PO QAM 05/17/22 [History] Multivit with Calcium,Iron,Min [Women's Multivitamin] 1 each PO DAILY 05/17/22 [History] Zinc 50 mg PO DAILY 05/17/22 [History] Omeprazole 20 mg PO BID 08/19/22 [History] Acetaminophen Tab [Tylenol Tab] 1,000 mg PO Q6HR PRN #30 tablet 08/20/22 [Rx] Ibuprofen [Motrin] 600 mg PO Q8HR PRN #30 tab 08/20/22 [Rx] Simethicone [Gas-X] 125 mg PO AC-TID PRN #20 capsule 08/20/22 [Rx] Follow up Appointment(s)/Referral(s): Rachelle Castillo MD [Primary Care Provider] - 08/31/22 2:00 pm Darlene Vick MD [STAFF PHYSICIAN] - 08/31/22 Patient Instructions/Handouts: *Surgery [facility] - Managing Your Pain After Surgery Without Opioids, Colectomy Diet (GEN), Laparoscopic Bowel Resection (GEN) Activity/Diet/Wound Care/Special Instructions: Wear abdominal binder for comfort. No lifting over 4 pounds in 4 weeks Sep 20. February shower. No bath tub soaks for two weeks until Sep 03 Avoid steak, tough meats and seeds such as raspberry seeds. See diverticulitis, low fiber, colectomy diet Use Tylenol and ibuprofen scheduled for the next 24-48 hours for best pain relief. Use ice along incisions for today to prevent swelling. Discharge Disposition: HOME SELF-CARE
[2022-08-23 14:11] VITALS: BP 116/69; PULSE 69; TEMP 98
--- NOTE | 2022-08-23 17:59 | P.PN ---
Progress Note - Text Progress Note Date: 08/23/22 - Chief Complaint Abdominal surgery Hospital course: This is a pleasant 62-year-old patient, was chronic stable medical conditions include COPD, GERD, hypertension, hyperlipidemia seizure disorder, hypothyroid. Patient for 2 days had been having lower abdominal pain on and off. Normally had to require laxatives to have about 2 bowel movements a week. Loss seizure was in 2006. Has a brain aneurysm that is being followed. Patient underwent robotic-assisted lysis of adhesions with shown white colectomy with low anterior resection. Patient is abdominal binder in place. Gamino catheter. Postprocedure slightly drowsy but able to answer questions. Abdominal pain is present. In bed. Patient has been ordered clear liquids by Dr. Vick. 08/21/2022: Laying in bed. Some abdominal pain. Did pass some flatus. Did vomit once. Remains on clear liquids. Advised to sit up on a chair. Increase activity. 08/22/2022: Patient has been up in the hallway. Clear liquid diet. Had's couple small BMs. Abdominal pain better. On fentanyl drip. 08/23/2022: Sore the patient this morning. On a fentanyl drip. Feeling better. Tolerating clear liquid diet. Had a BM last night. Pain much better. Ambulating.. at the bedside. Current medications reviewed Past medical history to include: COPD, GERD, hyperlipidemia, osteoarthritis, seizure disorder loss and again in 2006, hypothyroid, diverticulitis, brain aneurysm being followed, lung granuloma, anxiety depression Social history: Lives with her . Started smoking ages 18 and quit 8 years ago. Smoked half a pack a month. Alcohol rarely. CBD oil occasionally. Physical examination: VITAL SIGNS: 97.9, 78, 18, 1 25 x 65, 91% on room air GENERAL: Sitting up in bed, comfortable EYES: Pupils equal. Conjunctiva normal. HEENT: External appearance of nose and ears normal, oral cavity grossly normal. NECK: JVD not raised; masses not palpable. HEART: First and second heart sounds are normal; no edema. LUNGS: Respiratory rate normal; decreased breath sounds. ABDOMEN: Soft, much improved abdominal tenderness, no guarding rigidity, liver spleen not palpable, no masses palpable. Binder PSYCH: Alert and oriented x3; mood and affect normal INVESTIGATIONS, reviewed in the clinical context: 08/23/2022: WBC 8.3 hemoglobin 13.6 08/22/2022: WBC 11.4 hemoglobin 12.5 potassium 3.9 creatinine 0.61 08/21/2022: WBC 19.7 hemoglobin 13.8 potassium 4.6 creatinine 0.53 WBC 6 hemoglobin 13.8. Lives 254 potassium 4.3 creatinine 0.53 Chest x-ray film personally reviewed by me-possible hyperinflation Assessment and plan: -Low anterior resection for partial colon obstruction from adhesions. Resected Clear liquids. Fentanyl IV pain pump -Leukocytosis, likely reactive from surgery. No obvious evidence of infection.: Improved Follow clinically. -GERD Omeprazole 20 mg twice a day -Hypothyroid Synthroid -COPD in a previous smoker Beclomethasone 80 g 2 puffs twice a day, pro-air when necessary, Singulair -Brain aneurysm being followed as an outpatient -History of seizures last episode being in 2006. -Obesity BMI 38.3 Weight loss measures Diet to be advanced per surgery. Continue current medications. Clinically much better. IV fentanyl pain pump may be discontinued. Thank you Dr. Vick
== END 2022-08-23 14:45 | disposition home or self-care (01) | DRG 329 ==
LOC: ORWHC2ENDO 10:18 → 4SSUR 11:41
PROVIDERS: ADMIT Surgery Plastic and Reconstructive Surgery; ATTEND Surgery Plastic and Reconstructive Surgery
PROC: 0DJD8ZZ Inspection of Lower Intestinal Tract, Via Natural or Artificial Opening Endoscopic (ICD-10-PCS; 2022-08-19)
PROC: 0DTN4ZZ Resection of Sigmoid Colon, Percutaneous Endoscopic Approach (ICD-10-PCS; principal; 2022-08-20 10:20)
PROC: 8E0W4CZ Robotic Assisted Procedure of Trunk Region, Percutaneous Endoscopic Approach (ICD-10-PCS; principal; 2022-08-20 10:20)
PROC: 0DNE4ZZ Release Large Intestine, Percutaneous Endoscopic Approach (ICD-10-PCS; principal; 2022-08-20 10:20)
PROC: 0DJD8ZZ Inspection of Lower Intestinal Tract, Via Natural or Artificial Opening Endoscopic (ICD-10-PCS; principal; 2022-08-20 10:20)
DX: K57.32 Diverticulitis of large intestine without perforation or abscess without bleeding (principal); K56.2 Volvulus; I67.1 Cerebral aneurysm, nonruptured; J84.10 Pulmonary fibrosis, unspecified; J44.9 Chronic obstructive pulmonary disease, unspecified; G40.909 Epilepsy, unspecified, not intractable, without status epilepticus; Z28.310 Unvaccinated for COVID-19; N73.6 Female pelvic peritoneal adhesions (postinfective); I10 Essential (primary) hypertension; E66.9 Obesity, unspecified; Z68.38 Body mass index [BMI] 38.0-38.9, adult; E78.5 Hyperlipidemia, unspecified; K21.9 Gastro-esophageal reflux disease without esophagitis; F32.A Depression, unspecified; F41.1 Generalized anxiety disorder; E89.0 Postprocedural hypothyroidism; K44.9 Diaphragmatic hernia without obstruction or gangrene; M19.90 Unspecified osteoarthritis, unspecified site; R35.0 Frequency of micturition; Z79.890 Hormone replacement therapy; Z79.51 Long term (current) use of inhaled steroids; Z79.899 Other long term (current) drug therapy; Z87.891 Personal history of nicotine dependence; Z85.850 Personal history of malignant neoplasm of thyroid; Z86.73 Personal history of transient ischemic attack (TIA), and cerebral infarction without residual deficits; Z88.5 Allergy status to narcotic agent
CPT/HCPCS: 45330; 64999; 71045; 80048; 80053; 85025; 85610; 85730; 86850; 86900; 86901; 88307; 94640; 94760

== ENCOUNTER 2023-09-28 10:24 | Day surgery (SDC) | payer BC ==
--- NOTE | 2023-09-28 04:37 | P.GSHP ---
History of Present Illness H&P Date: 09/28/23 CHIEF COMPLAINT: GERD and colon screen HISTORY OF PRESENT ILLNESS: The patient is a 63-year-old female who presents with gastroesophageal reflux disease and need for colon screen. Upper and lower endoscopy were offered for further evaluation and management. PAST MEDICAL HISTORY: Please see list. PAST SURGICAL HISTORY: Please see list. MEDICATIONS: Please see list. ALLERGIES: Please see list. SOCIAL HISTORY: No illicit drug use FAMILY HISTORY: No reports of Crohn disease or ulcerative colitis. REVIEW OF ORGAN SYSTEMS: CONSTITUTIONAL: No reports of fevers or chills. GI: Denies any blood in stools or constipation. PHYSICAL EXAM: VITAL SIGNS: Stable GENERAL: Well-developed pleasant in no acute distress. HEENT: No scleral icterus. Extraocular movements grossly intact. Moist buccal mucosa. NECK: Supple without lymphadenopathy. CHEST: Unlabored respirations. Equal bilateral excursions. CARDIOVASCULAR: Regular rate and rhythm. Distal 2+ pulses. ABDOMEN: Soft, nondistended. MUSCULOSKELETAL: No clubbing, cyanosis, or edema. ASSESSMENT: 1. Gastroesophageal reflux disease 2. Colon screen. PLAN: 1. Recommend proceeding with an upper and lower endoscopy Past Medical History Past Medical History: Asthma, Cancer, CVA/TIA, GERD/Reflux, Hyperlipidemia, Memory Impairment, Osteoarthritis (OA), Seizure Disorder, Thyroid Disorder Additional Past Medical History / Comment(s): Hx thyroid cancer. Hx TIA some memory issues,facial expression affected , bells palsy. Migraines. Hx Seizures, last seizure in 2006. "BRAIN ANEURYSM DOCTORS ARE WATCHING IT EVERY 6 MONTHS TO A YEAR. Hx fall last year with knee injury, cracked/broken ribs. Granuloma - "spots on lung could become cancerous, causing recurrent bacterial infections, congestion and flare ups of allergies and asthma". "Recent abnormal EKG, saw rug inspector, stated nothing too concerning but have upcoming further testing". hx of esophageal narrowing causing cough and clearing throat. 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 egd with dilation, colonoscopy, bowel blockage with removal of approx 6" Past Anesthesia/Blood Transfusion Reactions: No Reported Reaction, Motion Sickness Smoking Status: Former smoker, Light tobacco smoker - Past Family History Mother Family Medical History: COPD Additional Family Medical History / Comment(s): Lifelong smoker. anemia Medications and Allergies Home Medications Medication Instructions Recorded Confirmed Type Albuterol Sulfate [Proair Hfa] 2 puff INHALATION Q6H PRN 06/28/17 09/27/23 Hi story Beclomethasone Dipropionate [Qvar 2 puff INHALATION BID 06/28/17 09/27/23 History 80 mcg] Loratadine [Claritin] 10 mg PO DAILY 09/16/21 09/27/23 History Montelukast [Singulair] 10 mg PO HS 09/16/21 09/27/23 History Calcium Chew (Unknown Dose) 1 tab PO DAILY 05/17/22 09/27/23 History Calcium/Vitamin D(Unknown Dose 1 tab PO DAILY 05/17/22 09/27/23 History Levothyroxine Sodium [Synthroid] 150 mcg PO QAM 05/17/22 09/27/23 History Multivit with Calcium,Iron,Min 1 each PO DAILY 05/17/22 09/27/23 History [Women's Multivitamin] Zinc 50 mg PO DAILY 05/17/22 09/27/23 History Omeprazole 20 mg PO BID 08/19/22 09/27/23 History Acetaminophen Tab [Tylenol Tab] 1,000 mg PO Q6HR PRN #30 tablet 08/20/22 09/27/23 Rx Ibuprofen [Motrin] 600 mg PO Q8HR PRN #30 tab 08/20/22 09/27/23 Rx Simethicone [Gas-X] 125 mg PO AC-TID PRN #20 capsule 08/20/22 09/27/23 Rx Aspirin 81 mg PO DAILY 09/27/23 09/27/23 History Allergies Allergy/AdvReac Type Severity Reaction Status Date / Time hydrocodone [From Vicodin] Allergy Nausea & Verified 09/27/23 12:50 Vomiting, CONSTIPATION morphine Allergy Nausea & Verified 09/27/23 12:50 Vomiting,rash,swelling
[~2023-09-28 10:24] MED LIST changes: -Antibiotics per Pharmacy 1 EACH MISC MISCELLANE PRN; -HEPARIN SODIUM,PORCINE/PF 5,000 UNIT/0.5 ML SYRINGE SQ PRN; +LACTATED RINGERS 1,000 ML IV SCH; +LIDOCAINE 1% (10MG/ML) FOR IV START INTRADERMA PRN
[2023-09-28 11:29] VITALS: TEMP 97.4
[2023-09-28] MEDS ORDERED: LIDOCAINE 1% INJ 10MG/ML (20 ML MDV) ONE (11:44)
[2023-09-28] MEDS ORDERED: PROPOFOL 10 MG/ML 20 ML VIAL IV ONE (11:44)
--- NOTE | 2023-09-28 12:28 | P.PCN ---
Date of Procedure: 09/28/23 Description of Procedure: PREOPERATIVE DIAGNOSIS: Dysphagia. Gastroesophageal reflux disease POSTOPERATIVE DIAGNOSIS: Upper esophageal stenosis OPERATION: Esophagogastroduodenoscopy with rigid dilator over the guidewire 57 Fr. SURGEON: Darlene Vick MD ANESTHESIA: MAC. INDICATIONS: The patient is a 63-year-old male who presents with a history of dysphagia. Benefits and risks of the procedure were described. Informed consent was obtained. DESCRIPTION: The patient was brought into the endoscopy suite and laid in the left lateral decubitus position. After a timeout was confirmed, the procedure was initiated. An Olympus gastroscope was passed and the stomach was entered. No gastritis was identified. The scope was advanced to the duodenum which was unremarkable. Retroflexion the scope confirmed a Hill grade 1 lower esophageal valve. Next using an [place] rigid dilator, a guidewire was placed through the pediatric gastroscope. Next the scope was withdrawn. A 57-Czech rigid [place] dilator was passed carefully along the posterior oropharynx to 50 cm and left in place for 2-3 minutes stretch. The dilator was withdrawn including the guidewire. The scope was reentered along the posterior oropharynx with no findings of full-thickness tear of the upper esophageal sphincter. Next, inflammation of the antrum was identified with cold forceps biopsies obtained. No full-thickness injury was encountered. The GI tract was desufflated. The patient tolerated the procedure well. FINDINGS: Squamocolumnar junction unremarkable at 36 cm. [place] rigid dilator 57-Czech completed. No recurrent hiatus hernia Hill grade 1 lower esophageal valve. LA grade A esophagitis. RECOMMENDATIONS: Upper endoscopy as needed
--- NOTE | 2023-09-28 12:34 | P.PCN ---
Date of Procedure: 09/28/23 Description of Procedure: PREOPERATIVE DIAGNOSIS: Change in bowel habits History of diverticulosis POSTOPERATIVE DIAGNOSIS: Colitis Chronic constipation OPERATION: Colonoscopy to the cecum, ileocecal valve and appendiceal orifice. Colonoscopy with random cold forceps biopsies SURGEON: Darlene Vick MD. ANESTHESIA: MAC. INDICATIONS: The patient is a 63-year-old female who presents change in bowel habits. Benefits and risks were described and informed consent was obtained. DESCRIPTION OF PROCEDURE: The patient had undergone Sutab prep. The patient had been brought into the operating room and laid in the left lateral decubitus position. After adequate intravenous sedation, the rectum was examined with 2% lidocaine jelly. External hemorrhoids were encountered. The rectal tone was within normal limits. No lesions were palpated in the rectal vault. An Olympus colonoscope was advanced until the cecum, ileocecal valve and appendiceal orifice were clearly viewed. The prep was fair to poor at the ascending colon. No lower scattered diverticulosis was encountered. No colonic polyps were found. Random biopsies obtained for colitis. Retroflexion of the scope demonstrated grade 2 internal hemorrhoids without active bleeding or inflammation. The colon was desufflated. The patient had tolerated the procedure well. Withdrawal time was over 6 minutes. FINDINGS: Aronchick preparation quality scale 3+(1-5) Internal hemorrhoids, grade 2 No external prolapsed hemorrhoids. No arteriovenous malformations. Abdominal wall pressure used to advance scope. Nondiagnostic for colon polyps Random biopsies for colitis RECOMMENDATIONS: Lower endoscopy as needed Plan - Discharge Summary Discharge Rx Participant: No New Discharge Prescriptions: Continue Beclomethasone Dipropionate [Qvar 80 mcg] 2 puff INHALATION BID Albuterol Sulfate [Proair Hfa] 2 puff INHALATION Q6H PRN PRN Reason: Shortness Of Breath Multivit with Calcium,Iron,Min [Women's Multivitamin] 1 each PO DAILY Calcium Chew (Unknown Dose) 1 tab PO DAILY Zinc 50 mg PO DAILY Calcium/Vitamin D(Unknown Dose 1 tab PO DAILY Simethicone [Gas-X] 125 mg PO AC-TID PRN #20 capsule PRN Reason: Pain Aspirin 81 mg PO DAILY Montelukast [Singulair] 10 mg PO HS Loratadine [Claritin] 10 mg PO DAILY Levothyroxine Sodium [Synthroid] 150 mcg PO QAM Omeprazole 20 mg PO BID Ibuprofen [Motrin] 600 mg PO Q8HR PRN #30 tab PRN Reason: Pain Acetaminophen Tab [Tylenol] 1,000 mg PO Q6HR PRN #30 tablet PRN Reason: Pain Discharge Medication List Albuterol Sulfate [Proair Hfa] 2 puff INHALATION Q6H PRN 06/28/17 [History] Beclomethasone Dipropionate [Qvar 80 mcg] 2 puff INHALATION BID 06/28/17 [History] Loratadine [Claritin] 10 mg PO DAILY 09/16/21 [History] Montelukast [Singulair] 10 mg PO HS 09/16/21 [History] Calcium Chew (Unknown Dose) 1 tab PO DAILY 05/17/22 [History] Calcium/Vitamin D(Unknown Dose 1 tab PO DAILY 05/17/22 [History] Levothyroxine Sodium [Synthroid] 150 mcg PO QAM 05/17/22 [History] Multivit with Calcium,Iron,Min [Women's Multivitamin] 1 each PO DAILY 05/17/22 [History] Zinc 50 mg PO DAILY 05/17/22 [History] Omeprazole 20 mg PO BID 08/19/22 [History] Acetaminophen Tab [Tylenol] 1,000 mg PO Q6HR PRN #30 tablet 08/20/22 [Rx] Ibuprofen [Motrin] 600 mg PO Q8HR PRN #30 tab 08/20/22 [Rx] Simethicone [Gas-X] 125 mg PO AC-TID PRN #20 capsule 08/20/22 [Rx] Aspirin 81 mg PO DAILY 09/27/23 [History] Follow up Appointment(s)/Referral(s): Darlene Vick MD [STAFF PHYSICIAN] - 10/18/23 1:00 pm Patient Instructions/Handouts: Constipation (DC), Esophageal Dilation (GEN) Discharge Disposition: HOME SELF-CARE
[2023-09-28 13:04] VITALS: BP 142/83; PULSE 65; RESP 16
== END 2023-09-28 13:23 | disposition home or self-care (01) ==
LOC: ORWHC2ENDO 10:24
PROVIDERS: ATTEND Surgery Plastic and Reconstructive Surgery
DX: K21.00 Gastro-esophageal reflux disease with esophagitis, without bleeding (principal); K59.09 Other constipation; K22.2 Esophageal obstruction; K52.9 Noninfective gastroenteritis and colitis, unspecified; K64.1 Second degree hemorrhoids; J45.909 Unspecified asthma, uncomplicated; E78.5 Hyperlipidemia, unspecified; M19.90 Unspecified osteoarthritis, unspecified site; E03.9 Hypothyroidism, unspecified; F32.A Depression, unspecified; F41.9 Anxiety disorder, unspecified; G43.909 Migraine, unspecified, not intractable, without status migrainosus; Z86.73 Personal history of transient ischemic attack (TIA), and cerebral infarction without residual deficits; Z85.850 Personal history of malignant neoplasm of thyroid; Z88.5 Allergy status to narcotic agent; Z79.82 Long term (current) use of aspirin; Z79.899 Other long term (current) drug therapy; Z90.710 Acquired absence of both cervix and uterus; Z98.890 Other specified postprocedural states; Z85.9 Personal history of malignant neoplasm, unspecified
CPT/HCPCS: 43239; 88305; 45380; 43248; J2001; J2704